=== PATIENT | male | born 1965 | race Caucasian/White ===

== ENCOUNTER 2020-07-29 10:26 | Emergency (ER) | payer OTHER, SELFPAY ==
--- NOTE | ~2020-07-29 | XR_ITS ---
EXAMINATION: XR HIP, RIGHT CLINICAL INFORMATION: Status post fall on her bed.] And pelvic pain. COMPARISON: None TECHNIQUE: AP pelvis one view. Right hip 2 views. FINDINGS: AP pelvis: There is normal symmetry of both hip joints and SI joints. No visible acute fracture or dislocation seen. No bony erosive changes. The soft tissues are normal. XR/XR hip RT w PEL1V IMPRESSION: Unremarkable AP pelvis and right hip exam.
[2020-07-29 10:36] VITALS: BP 145/83; PULSE 80; O2SAT 97
[2020-07-29 10:48] VITALS: BP 126/83; PULSE 62; RESP 18; TEMP 36.6; O2SAT 99; BMI 18.1
--- NOTE | 2020-07-29 11:08 | ED_ITS ---
HPI - Extremity Injury (Lower) General Chief Complaint: Extremity Problem Stated Complaint: SHELBIE. LEG PAIN S/P FALL WEDNESDAY Time Seen by Provider: 07/29/20 10:47 Source: patient and EMS Mode of arrival: EMS Limitations: no limitations History of Present Illness HPI Narrative: 55-year-old male with a past medical history of substance abuse with heroin/opioids, alcoholism, depression, hypertension, chronic back pain and history of pelvic fracture approximately 8 months ago presenting to the ED with complaints of right hip/pelvic pain since he fell out of bed on Wednesday. Denies head injury or loss of consciousness. Denies being on any blood thinners. Denies any other symptoms complaints concerns or injuries at this time. Denies any SI/HI/auditory visual cine shins thoughts of self-injury. MD complaint: hip injury Onset (ago): day(s) (3 days ago) Place: home Severity: moderate Relieving factors: nothing Exacerbating factors: weight bearing, movement and palpation Context: fall Associated symptoms: able to partially bear weight Other symptoms: none Treatments prior to arrival: other (One bag of heroin due to he ran out of PercRevolightset) Related Data Home Medications Medication Instructions Recorded Confirmed buprenorphine 8 mg-naloxone 2 mg film SUBLINGUAL 12/16/19 sublingual film clonazepam 0.5 mg tablet 0.5 mg PO BID 12/16/19 naloxone 4 mg/actuation nasal spray 4 mg INTRANASAL Q2M PRN 12/16/19 Previous Rx's Medication Instructions Recorded cyclobenzaprine 10 mg PO Q8H #10 tab 07/29/20 naproxen 500 mg PO BID PRN #10 tab 07/29/20 Allergies Allergy/AdvReac Type Severity Reaction Status Date / Time codeine [CODEINE] Allergy Unknown UNKNOWN Verified 07/29/20 10:50 Penicillins [PCN] Allergy Unknown RASH Verified 07/29/20 10:50 acetaminophen [From TYLENOL] AdvReac Unknown STOMACH Verified 01/16/20 07:02 UPSET Review of Systems Review of Systems: Constitutional : No changes in activity, No lethargy, No recent prior head injury, No agitation, No increased fussiness ENT/Mouth : No Ear Pain, No Nasal discharge/drainage Eyes: No Eye Pain, No Swelling, No Redness, No Foreign Body, No Vision Changes Cardiovascular : No Chest Pain, No SOB Respiratory : No Cough Gastrointestinal : No Nausea, No Vomiting, No abdominal Pain Genitourinary : No Dysuria, No Urinary Frequency, No Urinary Incontinence, No Urgency, No Flank Pain Musculoskeletal : + right pelvic/hip joint pain, No neck stiffness, No back pain/injury Skin : No lacerations Neuro : No unsteady gait, No Paresthesias, No Loss of Consciousness, No altered mental status, No Headache Yes all other systems are reviewed and are negative [facility] Past Medical History Attestation statement: The following information was validated with the patient. Medical History Drug abuse, opioid type History of broken nose Surgical History History of amputation of finger of left hand History of nasal surgery History of surgery Family History Family History Father Medical history unknown Mother Medical history unknown Social History Social History Alcohol intake: never Smoked in Last 30 Days: No Use of substances other than those prescribed or required for medical reasons: No Advance Directives: Yes Advance Directives Information Provided: Yes Advance Directives on File: No Physical Exam Vital Signs: Vital Signs: Last Vital Signs Temp 97.9 F 07/29/20 10:48 Pulse 62 07/29/20 10:48 Resp 18 07/29/20 10:48 BP 126/83 07/29/20 10:48 Pulse Ox 99 07/29/20 10:48 Body Mass Index 18.1 vital signs have been reviewed as normal and appeared to be correct. Blood pressure normal. Heart rate normal. Respiration rate normal. Temperature normal. Oxygen saturation normal. Appearance: Alert. Oriented X3. No acute distress. Head: Normal external exam. Normocephalic. Atraumatic. No Lord signs noted. No raccoon eyes noted Eyes: PERRLA. EOMI. Conjunctiva and sclera normal. Eyelids normal. ENT: Pharynx normal. Uvula midline. Moist mucous membranes. No trismus noted. No drooling noted. No muffled voice noted. Neck: Normal inspection. Neck supple. FROM. No adenopathy. Thyroid Normal. No meningeal signs. No neck mass noted. CVS: Normal heart rate and rhythm. Heart sound normal. No murmurs noted. Pulses normal throughout. Respiratory: No respiratory distress. Painless inspiration. Breath sounds normal. No wheezes/rales/rhonchi noted. Chest nontender. No accessory muscle usage noted or decreased air movement noted. Abdomen: Soft and nontender. Bowel sounds normal in all 4 quadrants. No d istention noted. No organomegaly noted. No visible injury noted. Back: Full range of motion noted. Skin: Skin warm and dry. Normal skin color. Normal skin turgor. No rashes/lesions/lacerations noted. Extremities: Patient with tenderness to palpation to right hip joint at the medial aspect. Patient has full range of motion of the pelvis/right hip joint. No obvious deformities. Patient does have limping gait due to pain. No signs of infection/fluctuance/streaking/foreign bodies or rashes noted. No lower extremity edema. No calf tenderness noted. Otherwise Extremities exhibit normal range of motion and nontender. Neuro: Oriented X 3. No motor deficit. No sensory deficit. Reflexes normal. Course Course Course Narrative: X-ray obtained and negative for any acute processes. Patient most likely right hip strain/muscle spasm. Will DC home with crutches and symptomatic treatment instructions to return if any new or worsening symptoms and to follow-up with orthopedics if symptoms persist longer than 2 weeks. Patient understands agrees with this plan. MDM - Extremity Injury (Lower) MDM Narrative Medical decision making narrative: 10:55am - 55-year-old male with a past medical history of substance abuse with heroin/opioids, alcoholism, depression, hypertension, chronic back pain and history of pelvic fracture approximately 8 months ago presenting to the ED with complaints of right hip/pelvic pain since he fell out of bed on Wednesday. - Plan: Xray of right hip/pelvis then re-evaluate. Medical Records Attestation: I reviewed the patient's medical records. Imaging Data Right hip/pelvis x-ray: Attestation: I personally reviewed and interpreted this imaging study as follows: Radiologist's impression: FINDINGS: AP pelvis: There is normal symmetry of both hip joints and SI joints. No visible acute fracture or dislocation seen. No bony erosive changes. The soft tissues are normal. XR/XR hip RT w PEL1V IMPRESSION: Unremarkable AP pelvis and right hip exam. Discharge Plan Discharge Clinical Impression: Strain of muscle of right hip, Fall Patient Disposition: Home, Self-Care Instructions: Crutch Instructions (ED), Muscle Spasm (ED) Prescriptions: New cyclobenzaprine 10 mg tablet 10 mg PO Q8H Qty: 10 RF: 0 naproxen 500 mg tablet 500 mg PO BID PRN (Reason: pain) Qty: 10 RF: 0 Referrals: Tan Winn MD [Physician] - 2 weeks (If symptoms persist) Print Language: Belarusian
[2020-07-29] MEDS: Cyclobenzaprine HCl 10 MG TABLET PO (12:49)
[2020-07-29] MEDS: NaPROXEN 500 MG TABLET PO (12:49)
== END 2020-07-29 12:53 | disposition home or self-care (01) ==
PROVIDERS: Emergency Provider Emergency Medicine; PCP Internal Medicine
DX: S76.011A Strain of muscle, fascia and tendon of right hip, initial encounter (principal); M25.551 Pain in right hip; F11.10 Opioid abuse, uncomplicated; W01.0XXA Fall on same level from slipping, tripping and stumbling without subsequent striking against object, initial encounter; Y93.9 Activity, unspecified; Y92.9 Unspecified place or not applicable; Y99.9 Unspecified external cause status; Z79.899 Other long term (current) drug therapy
CPT/HCPCS: 73502; 99284

== ENCOUNTER → 2021-08-04 09:17 | Outpatient (REF) | payer OTHER, SELFPAY | LOC: HO.CARD 09:17 | PROVIDERS: Visit Provider Family Medicine | DX: Z13.89 Encounter for screening for other disorder (principal) ==

== ENCOUNTER → 2021-08-07 08:12 | Outpatient (REF) | payer OTHER, SELFPAY ==
--- NOTE | 2021-08-07 08:18 | ECG_ITS ---
Test Reason : ck qt prolongation Blood Pressure : / mmHG Vent. Rate : 055 BPM Atrial Rate : 055 BPM P-R Int : 158 ms QRS Dur : 104 ms QT Int : 456 ms P-R-T Axes : 035 -45 045 degrees QTc Int : 436 ms Sinus bradycardia Left axis deviation Abnormal ECG When compared with ECG of 02-MAY-2015 22:51, Vent. rate has decreased BY 34 BPM Criteria for Inferior infarct are no longer Present Referred By: Temi Mijares Electronically Signed By:EMERALD DAVIS
== END ==
LOC: HO.CARD 08:12
PROVIDERS: PCP Internal Medicine; Visit Provider Family Medicine
DX: I45.81 Long QT syndrome (principal)
CPT/HCPCS: 93005

== ENCOUNTER 2021-12-02 18:41 | Emergency (ER) | payer OTHER, SELFPAY ==
--- NOTE | ~2021-12-02 | CT_ITS ---
EXAMINATION: CT HEAD WITHOUT CONTRAST CLINICAL INFORMATION: Altered mental status. COMPARISON: CT head dated from 10/18/2016. TECHNIQUE: Contiguous axial imaging was performed from the skull base to vertex without intravenous administration of contrast. This CT examination was performed using dose optimization techniques as appropriate, variously including the following: *Automated exposure control *Adjustment of mA and/or kV according to patient size (this includes techniques or standardized protocols for targeted exams where dose is matched to indication/reason for exam; i.e. extremities or head) *Use of iterative reconstruction technique DLP: 652 mGy-cm FINDINGS: There is no evidence of acute intracranial hemorrhage or edematous territorial infarction. Scattered hypoattenuation in the periventricular and deep white matter are consistent with moderate microangiopathy. Chauhan-white matter differentiation is preserved. Chronic bilateral lacunar infarcts similar when compared to 2017. Proportional prominence of the ventricles and sulcal spaces. No evidence for obstructive hydrocephalus. No abnormal mass effect or midline shift. No extra-axial fluid collections. No acute soft tissue or osseous abnormalities. The mastoid air cells and paranasal sinuses are clear. CT/CT head/brain wo IV con IMPRESSION: No evidence of acute intracranial hemorrhage or edematous territorial infarction. Chronic microangiopathy and generalized cerebral volume loss.
--- NOTE | ~2021-12-02 | XR_ITS ---
EXAMINATION: XR LUMBOSACRAL SPINE CLINICAL INFORMATION: Pain after fall COMPARISON: 07/23/2015 TECHNIQUE: Three views of the lumbosacral spine. FINDINGS: No acute fracture or subluxation. Alignment maintained. Mild disc space narrowing at the lower lumbar spine. Anterior endplate osteophytes. Facet arthropathy present. The sacroiliac joints are symmetric. The visualized sacrum is intact. Normal bowel gas pattern. XR/XR lumbar spine 2-3V IMPRESSION: No acute fracture or subluxation. Degenerative change at the lower lumbar spine.
[2021-12-02 19:07] VITALS: PULSE 89; RESP 16; TEMP 36.2; O2SAT 96; BMI 18.5
[2021-12-02 19:12] VITALS: BP 119/74
--- NOTE | 2021-12-03 01:38 | ED.GENADULT ---
HPI - General Adult General Chief complaint: General Medical Stated complaint: fell off roof at home Time Seen by Provider: 12/02/21 18:54 Source: patient Mode of arrival: ambulatory History of Present Illness HPI narrative: Patient with chronic back problem claims that it happened after he fell years ago had pelvic fractures on methadone heavy doses , snorts heroin off and on comes here for ongoing pain got worse for last 3 days no radiation of the pain no leg weakness Related Data Home Medications Medication Instructions Recorded Confirmed buprenorphine 8 mg-naloxone 2 mg film sublingual 12/16/19 sublingual film clonazepam 0.5 mg tablet 0.5 mg PO BID 12/16/19 naloxone 4 mg/actuation nasal 4 mg intranasal Q2M PRN 12/16/19 spray (Narcan) Previous Rx's Medication Instructions Recorded cyclobenzaprine 10 mg tablet 10 mg PO Q8H Muscle spasm #10 tabs 07/29/20 naproxen 500 mg tablet 500 mg PO BID PRN pain #10 tabs 07/29/20 cyclobenzaprine 10 mg tablet 10 mg PO Q8H #20 tabs 12/03/21 ibuprofen 600 mg tablet 600 mg PO Q6H PRN Pain, Moderate 12/03/21 #30 tabs Allergies Allergy/AdvReac Type Severity Reaction Status Date / Time codeine [CODEINE] Allergy Unknown UNKNOWN Verified 07/29/20 10:50 Penicillins [PCN] Allergy Unknown RASH Verified 07/29/20 10:50 acetaminophen [From TYLENOL] AdvReac Unknown STOMACH Verified 01/16/20 07:02 UPSET Review of Systems Review of Systems: Yes all other systems are reviewed and are negative PMFSH Past Medical History Medical History Drug abuse, opioid type History of broken nose Surgical History History of amputation of finger of left hand History of nasal surgery History of surgery Family History Family History Father Medical history unknown Mother Medical history unknown Social History Social History Alcohol intake: never Advance Directives: No Advance Directives Information Provided: No Physical Exam ED Vital Signs: Vital Signs - 24 hr 12/02/21 19:07 12/02/21 19:12 12/03/21 01:47 Temperature 97.2 F 97.0 F Pulse Rate 89 82 Respiratory Rate 16 17 Blood Pressure 119/74 105/73 Pulse Oximetry 96 96 Oxygen Delivery Method Room Air Room Air 12/03/21 03:16 12/03/21 05:19 12/03/21 05:27 Temperature 96.2 F L Pulse Rate 53 50 Respiratory Rate 12 19 Blood Pressure 95/55 L 148/98 H Pulse Oximetry 94 98 Oxygen Delivery Method Room Air Room Air BMI result Body Mass Index 18.5 Appearance: Alert. Oriented X3. No acute distress. ENT: Pharynx normal. Oral Mucosa moist Neck: Normal inspection. Neck supple. CVS: Normal heart rate and rhythm. Pulses normal. Respiratory: No respiratory distress. Equal air entry bilateral, no wheezing/rales/rhonchi Abdomen: Soft and nontender. Bowel sounds are present, no mass palpable, no CVA tenderness Skin: Skin warm and dry. Normal skin color. Normal skin turgor. back; diffuse lumbar tenderness no focal deformity SLR negative bilateral Extremities: No lower extremity edema. No calf tenderness, no IVDA sandoval Neuro: Oriented X 3. No motor deficit. No sensory deficit.No cerebellar signs , cranial nerves II-XII intact Medical Decision Making MDM Narrative Medical decision making narrative: 06:30 Patient x-ray of lumbar spine negative for any acute fracture during stay in the ER patient was very sleepy Delirius, difficult to arouse bottle of Klonopin Seroquel was found next to him likely taking those medications people normal says normal reaction for response to Narcan. Will get the labs drug screening of the re-examined and then disposition Discharge Plan Discharge Clinical Impression: Chronic back pain, Drug abuse, opioid type Patient Disposition: Still a Patient Instructions: Chronic Back Pain (DC), Opioid Use Disorder (ED) Additional Instructions: Take muscle relaxant and pain medication as prescribed Follow with PCP Prescriptions: New cyclobenzaprine 10 mg tablet 10 mg PO Q8H Qty: 20 0RF ibuprofen 600 mg tablet 600 mg PO Q6H PRN (Reason: Pain, Moderate) Qty: 30 0RF No Action cyclobenzaprine 10 mg tablet 10 mg PO Q8H Qty: 10 0RF naproxen 500 mg tablet 500 mg PO BID PRN (Reason: pain) Qty: 10 0RF
[2021-12-03 01:47] VITALS: BP 105/73; PULSE 82; RESP 17; TEMP 36.1; O2SAT 96
[2021-12-03] MEDS: Ketorolac Tromethamine 60 MG/2 ML VIAL IM (02:33)
--- NOTE | 2021-12-03 02:41 | PC.NURSE ---
Assumed care of pt. from waiting room around 115. Pt c/o abdominal pain radiating around back. Currently at a 5/10, but will jump to 10 when it spasm. Asked pt. for urine sample, but he was unable as he doesn't need to use the restroom. Will get a sample as soon as he is able to urinate.
--- NOTE | 2021-12-03 03:09 | PC.NURSE ---
Pt. was sleeping in wheelchair in room, snoring and difficult to arouse. Able to get pt. changed into a vaishnavi and up into the stretcher with 2 person heavy assist. Pt. agreed to injection med. Unable to arouse enough to sit up and safely take PO medication. Pt. O2 is 92 on room air.
[2021-12-03 03:16] VITALS: BP 95/55; PULSE 53; RESP 12; TEMP 35.7; O2SAT 94
--- NOTE | 2021-12-03 04:13 | PC.NURSE ---
Pt. deeply asleep in bed.
--- NOTE | 2021-12-03 04:15 | PC.NURSE ---
Pt. sleeping in room. O2 sats have been good (97 plus) throughout the night. Turned o2 down from 4 L to 2L and will assess tolerance to this adjustment. NS maintenance will be delayed as current bag is still running.
[2021-12-03 05:19] VITALS: PULSE 50; RESP 19; O2SAT 98
[2021-12-03 05:27] VITALS: BP 148/98
--- NOTE | 2021-12-03 05:28 | PC.NURSE ---
Addendum entered by Ajay Lorenzo RN 12/03/21 07:00: patient moved to diaz, attempting to void - refusing to use urinal, trying to carroting machine offbearer bed. staff at bedside for safety. not able to be redirected. Dr Amos at [facility], ordered IV and IV fluids. Patient continues to attempt to get out of bed, flailing, swatting staff away. Original Note: Assumed care at approx 0520, patient placed on monitor, attempted to get BP - thrashing in bed, spastic movements. Not cooperative or redirectable. Patient HR 40's SB, seen by Dr Amos. Managed to get BP 148/98. On 2 liters of 02. Patient unkempt, dirty hands & socks.
--- NOTE | 2021-12-03 06:44 | ECG_ITS ---
Test Reason : OVERDOSE Blood Pressure : / mmHG Vent. Rate : 061 BPM Atrial Rate : 061 BPM P-R Int : 176 ms QRS Dur : 108 ms QT Int : 460 ms P-R-T Axes : 054 -47 -01 degrees QTc Int : 463 ms Normal sinus rhythm Possible Left atrial enlargement Left axis deviation Minimal voltage criteria for LVH, may be normal variant ( Nik product ) Abnormal ECG When compared with ECG of 07-AUG-2021 08:32, T wave inversion now evident in Inferior leads Nonspecific T wave abnormality now evident in Anterior leads Referred By: Kian Cobos Electronically Signed By:GISELLA BAEZ
[2021-12-03 08:11] LABS: MANUAL DIFF FLAG NO
[2021-12-03 08:15] LABS: Basophils Percent Auto 0.5 % (0-2); Eosinophils Absolute Auto 0.2 X10*3/uL (0.0-0.4); Eosinophils Percent Auto 1.7 % (0-4); Hematocrit 44.7 % (42.0-52.0); Hemoglobin 14.6 g/dl (14.0-18.0); Imm Gran Abs Auto 0.02 X10*3/uL (0.00-0.03); Imm Gran Pct Auto 0.2 % (0.0-0.4); Lymphocytes Absolute Auto 1.2 X10*3/uL (1.2-4.9); Lymphocytes Percent Auto 13.4 % (20-40); Mean Corpuscular HGB Conc 32.7 g/dl (31.0-36.0); Mean Corpuscular Hemoglobin 31.3 pg (27.0-33.0); Mean Corpuscular Volume 95.7 fL (80.0-98.0); Mean Platelet Volume 9.4 fL (9.4-12.4); Monocytes Absolute Auto 0.7 X10*3/uL (0.1-1.2); Monocytes Percent Auto 7.9 % (2-11); Neutrophils Absolute Auto 6.8 x10*3/uL (2.0-8.3); Neutrophils Percent Auto 76.3 % (45-73); Platelet Count 152 X10*3/uL (160-400); Red Blood Count 4.67 X10*6/uL (4.60-5.80); White Blood Count 8.9 X10*3/uL (4.8-10.8)
[2021-12-03 08:28] LABS: Ethanol < 10 mg/dL
[2021-12-03 08:29] VITALS: BP 91/53; PULSE 57; RESP 20; O2SAT 95
[2021-12-03 08:29] LABS: COVID-19 Test Negative (Negative); Lactic Acid 1.4 mmol/L (0.5-2.0)
[2021-12-03 08:32] LABS: Acetaminophen LAB < 1 mcg/mL (<30); Alanine Aminotransferase 48 U/L (0-40); Albumin Level 3.1 g/dL (3.5-5.0); Alkaline Phosphatase 96 U/L (39-117); Anion Gap 13 (12-20); Aspartate Amino Transferase 50 U/L (5-37); Bilirubin Total 0.8 mg/dL (0.0-1.0); Blood Urea Nitrogen 7 mg/dL (9-16); Calcium 8.6 mg/dL (8.4-10.2); Carbon Dioxide 26 mmol/L (22-29); Chloride 104 mmol/L (96-108); Estimated Glomerular Filt Rate > 60; Glucose Random 106 mg/dL (60-115); Potassium 3.5 mmol/L (3.3-5.1); Salicylate < 5.0 mg/dL (15-30); Sodium 139 mmol/L (135-145); Total Protein 6.6 g/dL (6.5-8.0)
[2021-12-03] MEDS: 0.9 % Sodium Chloride 1,000 ML 999 ML IV (08:32)
[2021-12-03 09:01] LABS: Erythrocyte Sedimentation Rate 6 MM/HR (0-15)
--- NOTE | 2021-12-03 12:13 | PC.NURSE ---
slept all morning since 0800, nad, skin wpd
[2021-12-03 12:21] VITALS: BP 126/78; PULSE 51; RESP 14; O2SAT 97
[2021-12-03 13:22] LABS: Amphetamine Screen Urine Not Detected (Not Detect); Barbiturates, Urine Not Detected (Not Detect); Benzodiazepines Screen Urine POSITIVE (Not Detect); Cannabinoid Screen Urine POSITIVE (Not Detect); Cocaine Screen Urine Not Detected (Not Detect); Fentanyl, urine POSITIVE (Not Detect); Opiate Screen Urine POSITIVE (Not Detect); Phencyclidine Screen Urine Not Detected (Not Detect)
--- NOTE | 2021-12-03 13:27 | PC.NURSE ---
NAD, ALERT, SPEECH CLEAR, STEADY GAIT, ATE SEVERAL SANDWICHES AND A BURGER, NAD
== END 2021-12-03 13:28 | disposition home or self-care (01) ==
PROVIDERS: Emergency Provider Internal Medicine
DX: M54.50 Low back pain, unspecified (principal); F11.10 Opioid abuse, uncomplicated; R41.82 Altered mental status, unspecified; Z20.822 Contact with and (suspected) exposure to COVID-19; Z79.899 Other long term (current) drug therapy; Z71.51 Drug abuse counseling and surveillance of drug abuser
CPT/HCPCS: 36415; 70450; 72100; 80053; 80143; 80179; 80307; 82077; 83605; 85025; 85652; 87040; 87635; 93005; 96372; 99284; J1885

== ENCOUNTER → 2022-02-16 09:29 | Outpatient (REF) | payer OTHER, SELFPAY ==
--- NOTE | 2022-02-16 09:37 | ECG_ITS ---
Test Reason : Methadone for QT Prolongation Blood Pressure : / mmHG Vent. Rate : 070 BPM Atrial Rate : 070 BPM P-R Int : 162 ms QRS Dur : 100 ms QT Int : 400 ms P-R-T Axes : 047 -60 053 degrees QTc Int : 432 ms Normal sinus rhythm Left anterior fascicular block Abnormal ECG When compared with ECG of 03-DEC-2021 07:21, T wave inversion no longer evident in Inferior leads Nonspecific T wave abnormality no longer evident in Anterior leads Referred By: Temi Mijares Electronically Signed By:JANICE OCHOA MD
== END ==
LOC: HO.CARD 09:29
PROVIDERS: Visit Provider Family Medicine
DX: R94.31 Abnormal electrocardiogram [ECG] [EKG] (principal); Z79.891 Long term (current) use of opiate analgesic
CPT/HCPCS: 93005

== ENCOUNTER 2022-09-09 11:20 | Emergency (ER) | payer OTHER, SELFPAY ==
[2022-09-09 11:28] VITALS: BP 143/96; PULSE 93; RESP 20; TEMP 37; O2SAT 96
[2022-09-09 11:34] VITALS: BP 166/70; PULSE 94; O2SAT 97; BMI 25.2
[2022-09-09 12:05] LABS: MANUAL DIFF FLAG NO
--- NOTE | 2022-09-09 12:06 | ED_ITS ---
HPI - General Adult General Chief complaint: Psychiatric Symptoms Stated complaint: MANIC EPISODE Time Seen by Provider: 09/09/22 11:39 Source: patient and EMS Mode of arrival: EMS Limitations: no limitations History of Present Illness HPI narrative: 57-year-old male with history of polysubstance abuse, depression presents with abnormal behavior at home. Apparently, patient was throwing a cardboard boxes off of his balcony which affected his landlord. He denies any suicidal homicidal ideation. Denies any active drug or alcohol use. Denies any major depression or anxiety. Patient denies any active symptoms. Symptoms are there for mild to non-existent. There is no clear relieving or exacerbating features. Related Data Home Medications Medication Instructions Recorded Confirmed buprenorphine 8 mg-naloxone 2 mg film sublingual 12/16/19 sublingual film clonazepam 0.5 mg tablet 0.5 mg PO BID 12/16/19 naloxone 4 mg/actuation nasal 4 mg intranasal Q2M PRN 12/16/19 spray (Narcan) Previous Rx's Medication Instructions Recorded cyclobenzaprine 10 mg tablet 10 mg PO Q8H Muscle spasm #10 tabs 07/29/20 naproxen 500 mg tablet 500 mg PO BID PRN pain #10 tabs 07/29/20 cyclobenzaprine 10 mg tablet 10 mg PO Q8H #20 tabs 12/03/21 ibuprofen 600 mg tablet 600 mg PO Q6H PRN Pain, Moderate 12/03/21 #30 tabs Allergies Allergy/AdvReac Type Severity Reaction Status Date / Time codeine [CODEINE] Allergy Unknown UNKNOWN Verified 07/29/20 10:50 Penicillins [PCN] Allergy Unknown RASH Verified 07/29/20 10:50 acetaminophen [From TYLENOL] AdvReac Unknown STOMACH Verified 01/16/20 07:02 UPSET Review of Systems Review of Systems: CONSTITUTIONAL: Denies weight loss, fever and chills. HEENT: Denies changes in vision and hearing. RESPIRATORY: Denies SOB and cough. CV: Denies palpitations no CP. GI: Denies abdominal pain, nausea, vomiting and diarrhea. : Denies dysuria and urinary frequency. MSK: Denies myalgia and joint pain. SKIN: Denies rash and pruritus. NEUROLOGICAL: Denies headache and syncope. PSYCHIATRIC: Denies recent changes in mood. Denies anxiety and depression. All other ROS are negative unless in HPI PMFSH Past Medical History Medical History Drug abuse, opioid type History of broken nose Surgical History History of amputation of finger of left hand History of nasal surgery History of surgery Family History Family History Father Medical history unknown Mother Medical history unknown Social History Social History Alcohol intake: never Advance Directives: No Advance Directives Information Provided: No Physical Exam ED Vital Signs: Vital Signs - 24 hr 09/09/22 11:28 Temperature 98.6 F Pulse Rate 93 Respiratory Rate 20 Blood Pressure 143/96 H Pulse Oximetry 96 Oxygen Delivery Method Room Air BMI result Body Mass Index 25.2 GEN: Well developed, no acute distress, alert, oriented, unkempt appearing HEENT: Normocephalic, atraumatic, normal external ears, nose appears normal, no oropharyngeal edema or exudates Eyes: Normal to appearance Neck: Supple, no lymphadenopathy Respiratory: Talks in complete sentences, no respiratory distress, clear to auscultation bilaterally Cardiovascular: Regular rate and rhythm, no murmurs rubs or gallops Abdomen: Soft, nontender, nondistended, no guarding, no rebound Back: No CVA tenderness Extremities: No clubbing cyanosis or edema Neurologic: No focal neurologic deficits, cranial nerves 2-12 intact, strength is 5/5 bilaterally Skin: No rash Course Course Course Narrative: 57-year-old male presents with somewhat erratic behavior. He has been, cooperative throughout his emergency department course. I suspect his behavior is polysubstance abuse driven. Patient's speech is improved although slight still slightly slurred. Able to ambulate. His gait is not entirely perfect however he is steady enough to pose no immediate threat to himself for accidental fall. However, I did discuss keeping him a bit longer for sobriety. However, he would like to be discharged at this time. He is aware that he might fall and injure himself more significantly. Despite this he would like to be discharged. He is not suicidal homicidal. At this point I do not believe I can hold him against his wishes as he has decision-making capacity. He understands the consequences of his actions. Been counseled regarding polysubstance abuse. Medical Decision Making Medical Decision Making MDM Narrative: 57-year-old male presents for evaluation of possible retic behavior. Denies any suicidal homicidal ideation. Like to be discharged at this time. He does appear somewhat intoxicated, will check an alcohol level, toxicology screen. Everything appears normal in patient continues to have decision making capacity, will discharge patient home. Differential Diagnosis Differential Diagnoses: The differential diagnosis associated with the presentation includes (Psychiatric history, psychological problems, drug abuse, alcohol intoxication) Admission/Observation Consideration of admission/observation: Escalation of care including admission/observation considered Lab Data 09/09/22 11:55 09/09/22 11:55 Labs: Lab Results 09/09/22 09/09/22 09/09/22 Range/Units 11:55 11:55 11:55 WBC 9.0 (4.8-10.8) X10*3/uL RBC 5.39 (4.60-5.80) X10*6/uL Hgb 16.4 (14.0-18.0) g/dl Hct 49.6 (42.0-52.0) % MCV 92.0 (80.0-98.0) fL MCH 30.4 (27.0-33.0) pg MCHC 33.1 (31.0-36.0) g/dl RDW 13.2 (11.0-16.0) % Plt Count 183 (160-400) X10*3/uL MPV 9.7 (9.4-12.4) fL Immature Gran % (Auto) 0.2 (0.0-0.4) % Neut % (Auto) 61.6 (45-73) % Lymph % (Auto) 28.5 (20-40) % [place] % (Auto) 7.9 (2-11) % Eos % (Auto) 1.4 (0-4) % Baso % (Auto) 0.4 (0-2) % Lymph # (Auto) 2.6 (1.2-4.9) X10*3/uL [place] # (Auto) 0.7 (0.1-1.2) X10*3/uL Eos # (Auto) 0.1 (0.0-0.4) X10*3/uL Baso # (Auto) 0.0 (0.0-0.2) X10*3/uL Abs Immat Gran (auto) 0.02 (0.00-0.03) X10*3/uL Absolute Neuts (auto) 5.6 (2.0-8.3) x10*3/uL Absolute Nucleated RBC 0.000 (0.0-0.012) X10*3/uL Nucleated RBC % (auto) 0.0 (0.0-0.2) /100WBC Sodium 140 (135-145) mmol/L Potassium 4.0 (3.3-5.1) mmol/L Chloride 102 (96-108) mmol/L Carbon Dioxide 28 (22-29) mmol/L Anion Gap 14 (12-20) BUN 18 H (9-16) mg/dL Creatinine 1.03 (0.5-1.4) mg/dL Estim Creat Clear Calc 70.5 Estimated GFR > 60 Random Glucose 95 (60-115) mg/dL Calcium 10.2 D (8.4-10.2) mg/dL Total Bilirubin 1.1 H (0.0-1.0) mg/dL AST 71 H (5-37) U/L ALT 69 H (0-40) U/L Alkaline Phosphatase 118 H (39-117) U/L Total Protein 8.5 H (6.5-8.0) g/dL Albumin 3.8 (3.5-5.0) g/dL Urine Opiates Screen (Not Detect) Urine Fentanyl Screen (Not Detect) Ur Barbiturates Screen (Not Detect) Ur Phencyclidine Scrn (Not Detect) Ur Amphetamines Screen (Not Detect) U Benzodiazepines Scrn (Not Detect) Urine Cocaine Screen (Not Detect) U Marijuana (THC) Screen (Not Detect) Ethyl Alcohol < 10 mg/dL 09/09/22 Range/Units 12:31 WBC (4.8-10.8) X10*3/uL RBC (4.60-5.80) X10*6/uL Hgb (14.0-18.0) g/dl Hct (42.0-52.0) % MCV (80.0-98.0) fL MCH (27.0-33.0) pg MCHC (31.0-36.0) g/dl RDW (11.0-16.0) % Plt Count (160-400) X10*3/uL MPV (9.4-12.4) fL Immature Gran % (Auto) (0.0-0.4) % Neut % (Auto) (45-73) % Lymph % (Auto) (20-40) % [place] % (Auto) (2-11) % Eos % (Auto) (0-4) % Baso % (Auto) (0-2) % Lymph # (Auto) (1.2-4.9) X10*3/uL [place] # (Auto) (0.1-1.2) X10*3/uL Eos # (Auto) (0.0-0.4) X10*3/uL Baso # (Auto) (0.0-0.2) X10*3/uL Abs Immat Gran (auto) (0.00-0.03) X10*3/uL Absolute Neuts (auto) (2.0-8.3) x10*3/uL Absolute Nucleated RBC (0.0-0.012) X10*3/uL Nucleated RBC % (auto) (0.0-0.2) /100WBC Sodium (135-145) mmol/L Potassium (3.3-5.1) mmol/L Chloride (96-108) mmol/L Carbon Dioxide (22-29) mmol/L Anion Gap (12-20) BUN (9-16) mg/dL Creatinine (0.5-1.4) mg/dL Estim Creat Clear Calc Estimated GFR Random Glucose (60-115) mg/dL Calcium (8.4-10.2) mg/dL Total Bilirubin (0.0-1.0) mg/dL AST (5-37) U/L ALT (0-40) U/L Alkaline Phosphatase (39-117) U/L Total Protein (6.5-8.0) g/dL Albumin (3.5-5.0) g/dL Urine Opiates Screen POSITIVE H (Not Detect) Urine Fentanyl Screen POSITIVE H (Not Detect) Ur Barbiturates Screen Not Detected (Not Detect) Ur Phencyclidine Scrn Not Detected (Not Detect) Ur Amphetamines Screen Not Detected (Not Detect) U Benzodiazepines Scrn POSITIVE H (Not Detect) Urine Cocaine Screen POSITIVE H (Not Detect) U Marijuana (THC) Screen POSITIVE H (Not Detect) Ethyl Alcohol mg/dL Independent Historian Clinical information obtained from an independent historian. History obtained from or confirmed by: EMS Discharge Plan Discharge Clinical Impression: Behavior disturbance, Polysubstance abuse Patient Disposition: Home, Self-Care Instructions: Polysubstance Abuse (ED) Prescriptions: No Action cyclobenzaprine 10 mg tablet 10 mg PO Q8H Qty: 10 0RF naproxen 500 mg tablet 500 mg PO BID PRN (Reason: pain) Qty: 10 0RF cyclobenzaprine 10 mg tablet 10 mg PO Q8H Qty: 20 0RF ibuprofen 600 mg tablet 600 mg PO Q6H PRN (Reason: Pain, Moderate) Qty: 30 0RF Referrals: [facility] [place] [facility] [Provider Group]
[2022-09-09 12:09] LABS: Basophils Percent Auto 0.4 % (0-2); Eosinophils Absolute Auto 0.1 X10*3/uL (0.0-0.4); Eosinophils Percent Auto 1.4 % (0-4); Hematocrit 49.6 % (42.0-52.0); Hemoglobin 16.4 g/dl (14.0-18.0); Imm Gran Abs Auto 0.02 X10*3/uL (0.00-0.03); Imm Gran Pct Auto 0.2 % (0.0-0.4); Lymphocytes Absolute Auto 2.6 X10*3/uL (1.2-4.9); Lymphocytes Percent Auto 28.5 % (20-40); Mean Corpuscular HGB Conc 33.1 g/dl (31.0-36.0); Mean Corpuscular Hemoglobin 30.4 pg (27.0-33.0); Mean Platelet Volume 9.7 fL (9.4-12.4); Monocytes Absolute Auto 0.7 X10*3/uL (0.1-1.2); Monocytes Percent Auto 7.9 % (2-11); Neutrophils Absolute Auto 5.6 x10*3/uL (2.0-8.3); Neutrophils Percent Auto 61.6 % (45-73); Platelet Count 183 X10*3/uL (160-400); Red Blood Count 5.39 X10*6/uL (4.60-5.80); Red Cell Distribution Width 13.2 % (11.0-16.0)
[2022-09-09 12:27] LABS: Alanine Aminotransferase 69 U/L (0-40); Albumin Level 3.8 g/dL (3.5-5.0); Alkaline Phosphatase 118 U/L (39-117); Anion Gap 14 (12-20); Aspartate Amino Transferase 71 U/L (5-37); Bilirubin Total 1.1 mg/dL (0.0-1.0); Blood Urea Nitrogen 18 mg/dL (9-16); Calcium 10.2 mg/dL (8.4-10.2); Carbon Dioxide 28 mmol/L (22-29); Chloride 102 mmol/L (96-108); Creatinine Clr Calc Pharmacy 70.5; Estimated Glomerular Filt Rate > 60; Glucose Random 95 mg/dL (60-115); Sodium 140 mmol/L (135-145); Total Protein 8.5 g/dL (6.5-8.0)
[2022-09-09 12:30] LABS: Ethanol < 10 mg/dL
[2022-09-09 12:48] LABS: Amphetamine Screen Urine Not Detected (Not Detect); Barbiturates, Urine Not Detected (Not Detect); Benzodiazepines Screen Urine POSITIVE (Not Detect); Cannabinoid Screen Urine POSITIVE (Not Detect); Cocaine Screen Urine POSITIVE (Not Detect); Fentanyl, urine POSITIVE (Not Detect); Opiate Screen Urine POSITIVE (Not Detect); Phencyclidine Screen Urine Not Detected (Not Detect)
[2022-09-09 14:56] VITALS: BP 134/95; PULSE 79; RESP 18; O2SAT 96
== END 2022-09-09 15:53 | disposition home or self-care (01) ==
PROVIDERS: Emergency Provider Emergency Medicine
DX: F91.9 Conduct disorder, unspecified (principal); F19.10 Other psychoactive substance abuse, uncomplicated; F11.20 Opioid dependence, uncomplicated; I10 Essential (primary) hypertension; Z79.899 Other long term (current) drug therapy
CPT/HCPCS: 36415; 80053; 80307; 85025; 99284

== ENCOUNTER 2023-01-14 08:36 | Outpatient (REF) | payer MEDICAID, SELFPAY ==
--- NOTE | ~2023-01-14 | XR_ITS ---
EXAMINATION: XR KNEE, RIGHT CLINICAL INFORMATION: Pain COMPARISON: Right knee radiograph from 02/24/2012 TECHNIQUE: Four views of the right knee. FINDINGS: No acute visible fracture or dislocation. Multicompartment arthritic changes. Chondrocalcinosis along the tibial plateau greatest along its lateral margin. Periarticular aspect along the superior margin of the patella and along the medial distal femoral condyle. Joint spaces and alignment are otherwise maintained. Small knee joint effusion. Soft tissues are unremarkable. XR/XR knee RT 2V IMPRESSION: 1. No acute visible fracture or dislocation. 2. Multicompartment arthritic changes. 3. Chondrocalcinosis along the tibial plateau greatest along its lateral margin. 4. Small knee joint effusion.
== END 2023-01-14 08:37 | disposition home or self-care (01) ==
LOC: HO.HHCX 08:36
PROVIDERS: Visit Provider Internal Medicine
DX: M25.561 Pain in right knee (principal)
CPT/HCPCS: 73560

== ENCOUNTER 2023-10-19 18:16 | Emergency (ER) | payer MEDICAID, SELFPAY ==
--- NOTE | 2023-10-19 | ECG_ITS ---
Test Reason : FALL Blood Pressure : / mmHG Vent. Rate : 066 BPM Atrial Rate : 066 BPM P-R Int : 184 ms QRS Dur : 110 ms QT Int : 448 ms P-R-T Axes : 048 -53 027 degrees QTc Int : 469 ms Normal sinus rhythm Left anterior fascicular block Minimal voltage criteria for LVH, may be normal variant ( [employer] product ) Abnormal ECG When compared with ECG of 16-FEB-2022 09:42, No significant change was found Referred By: Generic ED Physician Electronically Signed By:Carlos Quach
--- NOTE | ~2023-10-19 | CT_ITS ---
Examination: CT brain and CT cervical spine without contrast. CLINICAL INDICATION: Fall, LOC. COMPARISON: CT brain 12/03/2021 an MRI cervical spine 09/26/2013. TECHNIQUE: 2 mm thin axial and reformatted 2 mm thin sagittal and coronal images of brain were obtained. Subsequently 3 mm thin and reformatted 2 minutes thin sagittal coronal images of cervical spine were obtained. DLP 1161. This CT examination was performed using dose optimization technique as appropriate, variously including the following: Automated exposure control Adjustment of MA and/or KV according to patient size(this includes techniques or standardized protocols for targeted exams where dose is matched to indication/reason for exam; extremities or head. Use of iterative reconstruction techniques. FINDINGS: BRAIN: There is no acute intra-axial, extra-axial bleed, masses or midline shift. There is no acute infarction in evolution. The boles to white matter differentiation is maintained normal. The lateral ventricles are symmetrical in size and configuration with mild enlargement. Bone windows reveal no calvarial abnormality. There is no scalp soft tissue normality. There is mild mucoperiosteal thickening floor of the left maxillary sinus. Rest of the paranasal sinuses are well-aerated and clear. CERVICAL SPINE: There is mild reversal of cervical lordosis. The vertebral heights and alignment is normal. There is mild loss of C5-C6, C6-C7 and C7-T1 disc heights with mild ventral spondylosis. The craniovertebral junction and the C1-C2 alignment is preserved. The prevertebral and paravertebral soft tissues are normal. The airway is widely patent. There is bilateral apical pleural thickening. CT/CT cervical spine wo IV con IMPRESSION: No acute intracranial process seen. There is reversal of cervical lordosis. No visible acute fracture, dislocation or subluxation seen.
--- NOTE | ~2023-10-19 | CT_ITS ---
Examination: CT chest, abdomen and pelvis with IV contrast. CLINICAL INDICATION: Fall. Pain left upper quadrant and chest pain. COMPARISON: Chest x-ray 05/02/2015 and ultrasound abdomen 11/24/2018. TECHNIQUE: 5 mm thin axial and reformatted 3 mm thin sagittal and coronal images of chest, abdomen and pelvis were obtained following 85 ml Omnipaque 350. DLP 718. This CT examination was performed using dose optimization technique as appropriate, variously including the following: Automated exposure control Adjustment of MA and/or KV according to patient size(this includes techniques or standardized protocols for targeted exams where dose is matched to indication/reason for exam; extremities or head. Use of iterative reconstruction techniques. FINDINGS: CHEST: The lungs are the lungs are well-expanded and clear of acute pneumonic process. There is dependent bibasilar atelectasis. Minimal atelectasis visualized the right middle lobe medially. No pulmonary nodule, mass or consolidation. The thyroid lobes are symmetric and normal. The central trachea and the bronchi are widely patent. The heart size and the great vessels are normal caliber. No evidence aortic aneurysm or dissection seen. A three-vessel branching of aortic arch is noted. Mild coronary artery calcifications are present. There is no pericardial effusion. There is no pleural effusion, thickening or calcified pleural plaques. The axilla is unremarkable. There are deformities of right 9th, 10th and 11th posterior lateral ribs likely old healed fractures. ABDOMEN AND PELVIS: The liver is diffusely attenuated but normal size and contour. No focal lesion or intrahepatic ductal dilatation seen. There is a solitary gallstone without wall thickening. Visualized spleen, pancreas and bilateral adrenal glands unremarkable. Both kidney nephrograms are symmetrical in size and cortical thickness. No radiopaque renal calculi or hydronephrosis seen. No perinephric stranding. The abdominal aorta is normal caliber. No retroperitoneal lymph nodes or mass seen. The abdominal wall appears unremarkable. There is moderate stool and gas seen throughout the colon without distention. The small bowel loops are normal caliber. Appendix is normal caliber. No free air or free fluid seen. Imaging to the pelvis reveals unremarkable urinary bladder. The prostate gland is mildly enlarged with central gland calcification. No free fluid. No abnormal pelvic lymph nodes. Bone windows reveal mild degenerative disc changes L5/S1 disc level. There are large L5-S1 bridging osteophyte. No aggressive lytic or sclerotic process seen in dorsal or lumbosacral spine. CT/CT abdomen pelvis w IV con IMPRESSION: No acute process seen in the chest, abdomen or pelvis. Cholelithiasis. Fatty liver. Mild prostate enlargement with central gland calcifications. Moderate constipation.
[2023-10-19 18:25] VITALS: BP 135/94; BP 156/92; PULSE 71; PULSE 80; RESP 16; TEMP 36.8; O2SAT 96; O2SAT 97; BMI 24.8
--- NOTE | 2023-10-19 18:41 | PC.NURSE ---
Pt presents to ED via EMS from home. Reports he was standing on two stacked milk crates fixing his smoke alarm when he lost balance and fell. Reports he did hit his head (unsure on what) but knows he hit his abdomen and chest on the milk crates. Reports he felt fuzzy and lost consciousness for short period (no witnesses, home alone), crawled to his phone to call for help. C-collar by EMS. Reports pain to lower back, left arm, chest and abdomen. Obvious bruising noted to ABD, distended. Pt is alert and oriented, breathing even and unlabored. Reports vision is blurry. NSR on bedside monitoring engineer, VSS. Denies drug or alcohol use.
[2023-10-19 18:45] VITALS: BP 128/85; PULSE 70
--- NOTE | 2023-10-19 19:05 | ED_ITS ---
HPI - Fall General Chief Complaint: Fall Stated Complaint: Possible broken rib, fall off crates, diff breathi Time Seen by Provider: 10/19/23 18:41 Source: patient and EMS Mode of arrival: ambulatory Limitations: no limitations History of Present Illness ED Provider: Dr. Deb Alanis HPI Narrative: Patient comes to the emergency room complaining of severe rib pain on the left and left upper quadrant. Patient states that he was standing on 2 milk crates, trying to change a light bulb. Patient states that he lost balance, fell, hit his head, nearly lost consciousness. Patient states that he has severe left- sided rib pain and abdominal pain on the left. Patient also complaining of neck pain. Patient denies drinking alcohol. Related Data Home Medications ?Medication ?Instructions ?Recorded ?Confirmed buprenorphine 8 mg-naloxone 2 mg film sublingual 12/16/19 sublingual film clonazepam 0.5 mg tablet 0.5 mg PO BID 12/16/19 naloxone 4 mg/actuation nasal 4 mg intranasal Q2M PRN 12/16/19 spray (Narcan) Previous Rx's ?Medication ?Instructions ?Recorded cyclobenzaprine 10 mg tablet 10 mg PO Q8H Muscle spasm #10 tabs 07/29/20 naproxen 500 mg tablet 500 mg PO BID PRN pain #10 tabs 07/29/20 cyclobenzaprine 10 mg tablet 10 mg PO Q8H #20 tabs 12/03/21 ibuprofen 600 mg tablet 600 mg PO Q6H PRN Pain, Moderate 12/03/21 #30 tabs cyclobenzaprine 10 mg tablet 10 mg PO TID PRN muscle spasm #10 10/19/23 tabs ibuprofen 600 mg tablet 600 mg PO TID PRN fever or pain 10/19/23 #30 tabs Allergies Allergy/AdvReac Type Severity Reaction Status Date / Time codeine [CODEINE] Allergy Unknown UNKNOWN Verified 10/19/23 18:29 Penicillins [PCN] Allergy Unknown RASH Verified 07/29/20 10:50 acetaminophen [From TYLENOL] AdvReac Unknown STOMACH Verified 01/16/20 07:02 UPSET Review of Systems 2 Review of Systems: Constitutional : No Weight loss, No Fever, No Chills, No Night Sweats, No Fatigue, No Malaise ENT/Mouth : No Hearing loss, No Ear Pain, No Nasal Congestion, No Sinus Pain, No Hoarseness, No sore throat, No Rhinorrhea, No Swallowing Difficulty Eyes: No Eye Pain, No Swelling, No Redness, No Foreign Body, No Discharge, No Vision Changes Cardiovascular : No Chest Pain, No SOB, No Dyspnea on Exertion, No Orthopnea, No Edema, No Palpitations Respiratory : No Cough, No Sputum, No Wheezing, No Smoke Exposure, No Dyspnea Gastrointestinal : No Nausea, No Vomiting, No Diarrhea, No Constipation, complaining of left upper quadrant pain Genitourinary : no irregular bleeding, No Dysuria, No Urinary Frequency, No Hematuria, No Urinary Incontinence, No Urgency, No Flank Pain, No Urinary Flow Changes, No Hesitancy Musculoskeletal : Complaining of severe left rib pain and moderate neck pain Skin : No Skin Lesions, No rash Neuro : No Weakness, No Numbness, No Paresthesias, No Loss of Consciousness, No Dizziness, No Headache Psych : No Anxiety/Panic, No Depression, No SI/HI/AH/VH, No Social Issues, Heme/Lymph: No Bruising, No Bleeding,No Lymphadenopathy Endocrine : No Polyuria, No Polydipsia, No Temperature Intolerance [facility] Past Medical History Medical History Depression Alcoholism Hypertension Heroin abuse History of pelvic fracture Drug abuse, opioid type Surgical History History of surgery History of nasal surgery History of amputation of finger of left hand Family History Family History Father Medical history unknown Mother Medical history unknown Social History Social History Alcohol intake: never Smoked in Last 30 Days: Yes Use of substances other than those prescribed or required for medical reasons: No Advance Directives: No Advance Directives Information Provided: No Physical Exam 2 Vital Signs: Vital Signs: Last Vital Signs Temp 97.9 F 10/19/23 20:00 Pulse 61 10/19/23 20:00 Resp 16 10/19/23 20:00 BP 129/78 10/19/23 20:00 Pulse Ox 95 10/19/23 20:00 O2 Del Method Room Air 10/19/23 20:00 BMI result Body Mass Index 24.8 Const: Other: Appearance: Alert. Oriented X3. Patient's seems uncomfortable Eyes: Pupils equal, round and reactive to light. ENT: Pharynx normal. Neck: Patient's C-spine precautions, pain to palpation in all C-spine. CVS: Normal heart rate and rhythm. Pulses normal. Normal S1 and S2. Pain to palpation over the ribs on the left Respiratory: No respiratory distress. Breath sounds normal. No Wheezing. No rales Abdomen: Soft , moderately distended, pain to palpation in left upper quadrant. There 2nd ecchymosis/abrasion to the left upper quadrant. Bedside FAST negative Skin: Skin warm and dry. Normal skin color. Normal skin turgor. Extremities: No lower extremity edema. No Lacerations. No Rash Neuro: Oriented X 3. No motor deficit. No sensory deficit. Moving all extremities. No slurred speech. CN 2 through 12 grossly intact Psych: calm, cooperative, normal affect Course Course Course Narrative: -FAST negative -patient's vitals stable, blood pressure 128/85, heart rate 70, oxygen saturation 96% on room air -patient receiving IV fluids and morphine -CT scan of the head, cervical spine, chest abdomen and pelvis pending Medications Administered Discontinued Medications Generic Name Dose Route Start Last Admin Trade Name Freq PRN Reason Stop Dose Admin Sodium Chloride 1,000 mls @ 999 mls/hr 10/19/23 18:50 10/19/23 20:30 Ns IVCONT 10/19/23 19:50 Infused .Q1H1M ONE Infusion Morphine Sulfate 4 mg 10/19/23 18:50 10/19/23 19:13 Morphine Sulfate 4 Mg/Ml Cartridge IVPUSH 10/19/23 18:51 4 mg ONCE ONE Administration Protocol Medical Decision Making Medical Decision Making [facility] [place] Narrative: -I was informed by the patient's nurse that the patient ripped out his C-collar, patient refusing to put it back on -my interpretation of CT scan of the head: No intracranial bleed. Chest CT abdominal CT no obvious deformities. No obvious acute process. -patient has been walking around the emergency room, steady gait, stating that he wants to leave, states that he feels better. Differential Diagnosis Differential Diagnoses: The differential diagnosis associated with the presentation includes (Intracranial bleed, contusion, concussion, costochondritis, splenic laceration, rib fractures) Admission/Observation Consideration of admission/observation: Escalation of care including admission/observation considered (Given patient's initial presentation and mechanism of injury, observation was considered) Lab Data MDM Lab Attestation statement: I reviewed the patient's lab results. 10/19/23 19:27 10/19/23 19:27 Labs: Lab Results 10/19/23 10/19/23 Range/Units 19:27 20:49 WBC 7.4 (4.8-10.8) X10*3/uL RBC 4.21 L D (4.60-5.80) X10*6/uL Hgb 13.4 L (14.0-18.0) g/dl Hct 40.0 L (42.0-52.0) % MCV 95.0 (80.0-98.0) fL MCH 31.8 (27.0-33.0) pg MCHC 33.5 (31.0-36.0) g/dl RDW 14.8 (11.0-16.0) % Plt Count 164 (160-400) X10*3/uL MPV 8.8 L (9.4-12.4) fL Immature Gran % (Auto) 0.3 (0.0-0.4) % Neut % (Auto) 51.4 (45-73) % Lymph % (Auto) 35.7 (20-40) % [place] % (Auto) 9.9 (2-11) % Eos % (Auto) 2.2 (0-4) % Baso % (Auto) 0.5 (0-2) % Lymph # (Auto) 2.6 (1.2-4.9) X10*3/uL [place] # (Auto) 0.7 (0.1-1.2) X10*3/uL Eos # (Auto) 0.2 (0.0-0.4) X10*3/uL Baso # (Auto) 0.0 (0.0-0.2) X10*3/uL Abs Immat Gran (auto) 0.02 (0.00-0.03) X10*3/uL Absolute Neuts (auto) 3.8 (2.0-8.3) x10*3/uL Absolute Nucleated RBC 0.000 (0.0-0.012) X10*3/uL Nucleated RBC % (auto) 0.0 (0.0-0.2) /100WBC Sodium 139 (135-145) mmol/L Potassium 3.6 (3.3-5.1) mmol/L Chloride 106 (96-108) mmol/L Carbon Dioxide 27 (22-29) mmol/L Anion Gap 10 L (12-20) BUN 11 (9-16) mg/dL Creatinine 0.86 (0.5-1.4) mg/dL Estim Creat Clear Calc 98.5 Estimated GFR > 60 Random Glucose 92 (60-115) mg/dL Calcium 8.5 D (8.4-10.2) mg/dL Total Bilirubin 0.6 (0.0-1.0) mg/dL Direct Bilirubin 0.2 (0.0-0.5) mg/dL AST 45 H (5-37) U/L ALT 54 H (0-40) U/L Alkaline Phosphatase 92 (39-117) U/L Total Protein 7.4 (6.5-8.0) g/dL Albumin 3.2 L (3.5-5.0) g/dL Urine Opiates Screen POSITIVE H (Not Detect) Ur Buprenorphine Scrn Not Detected (Not Detect) ng/mL Ur Oxycodone Screen Not Detected (Not Detect) ng/mL Urine Methadone Screen Positive H (Not Detect) ng/mL Urine Fentanyl Screen POSITIVE H (Not Detect) Ur Barbiturates Screen Not Detected (Not Detect) Ur Phencyclidine Scrn Not Detected (Not Detect) Ur Amphetamines Screen Not Detected (Not Detect) U Benzodiazepines Scrn Not Detected (Not Detect) Urine Cocaine Screen Not Detected (Not Detect) U Marijuana (THC) Screen POSITIVE H (Not Detect) Ethyl Alcohol < 10 mg/dL Independent Interpretation I performed an independent interpretation of an: CT Scan Radiology Impression Discussion of test interpretation with radiology: I have reviewed the radiologist's reading. Radiologist Impression: BRAIN: There is no acute intra-axial, extra-axial bleed, masses or midline shift. There is no acute infarction in evolution. The boles to white matter differentiation is maintained normal. The lateral ventricles are symmetrical in size and configuration with mild enlargement. Bone windows reveal no calvarial abnormality. There is no scalp soft tissue normality. There is mild mucoperiosteal thickening floor of the left maxillary sinus. Rest of the paranasal sinuses are well-aerated and clear. CERVICAL SPINE: There is mild reversal of cervical lordosis. The vertebral heights and alignment is normal. There is mild loss of C5-C6, C6-C7 and C7-T1 disc heights with mild ventral spondylosis. The craniovertebral junction and the C1-C2 alignment is preserved. The prevertebral and paravertebral soft tissues are normal. The airway is widely patent. There is bilateral apical pleural thickening. CHEST: The lungs are the lungs are well-expanded and clear of acute pneumonic process. There is dependent bibasilar atelectasis. Minimal atelectasis visualized the right middle lobe medially. No pulmonary nodule, mass or consolidation. The thyroid lobes are symmetric and normal. The central trachea and the bronchi are widely patent. The heart size and the great vessels are normal caliber. No evidence aortic aneurysm or dissection seen. A three-vessel branching of aortic arch is noted. Mild coronary artery calcifications are present. There is no pericardial effusion. There is no pleural effusion, thickening or calcified pleural plaques. The axilla is unremarkable. There are deformities of right 9th, 10th and 11th posterior lateral ribs likely old healed fractures. ABDOMEN AND PELVIS: The liver is diffusely attenuated but normal size and contour. No focal lesion or intrahepatic ductal dilatation seen. There is a solitary gallstone without wall thickening. Visualized spleen, pancreas and bilateral adrenal glands unremarkable. Both kidney nephrograms are symmetrical in size and cortical thickness. No radiopaque renal calculi or hydronephrosis seen. No perinephric stranding. The abdominal aorta is normal caliber. No retroperitoneal lymph nodes or mass seen. The abdominal wall appears unremarkable. There is moderate stool and gas seen throughout the colon without distention. The small bowel loops are normal caliber. Appendix is normal caliber. No free air or free fluid seen. Imaging to the pelvis reveals unremarkable urinary bladder. The prostate gland is mildly enlarged with central gland calcification. No free fluid. No abnormal pelvic lymph nodes. Bone windows reveal mild degenerative disc changes L5/S1 disc level. There are large L5-S1 bridging osteophyte. No aggressive lytic or sclerotic process seen in dorsal or lumbosacral spine. CT/CT chest w IV con IMPRESSION: No acute process seen in the chest, abdomen or pelvis. Cholelithiasis. Fatty liver. Mild prostate enlargement with central gland calcifications. Moderate constipation. Critical Care Time Critical Care Time Critical Care Time: Yes Total Critical Care Time: 60 Attestation: I have personally provided critical care time. Time includes review of lab data, radiology results, discussion with consultants, and monitoring for potential decompensation. Intervention performed as documented. Discharge Plan Discharge Clinical Impression: Fall, Contusion, Costochondritis Patient Disposition: Home, Self-Care Instructions: Costochondritis (ED), Fall Prevention (ED) Additional Instructions: Please follow-up with your primary care physician tomorrow. If you have any worsening or new symptoms, please return to the emergency room or call 911 Prescriptions: New ibuprofen 600 mg tablet 600 mg PO TID PRN (Reason: fever or pain) Qty: 30 0RF cyclobenzaprine 10 mg tablet 10 mg PO TID PRN (Reason: muscle spasm) Qty: 10 0RF No Action cyclobenzaprine 10 mg tablet 10 mg PO Q8H Qty: 10 0RF naproxen 500 mg tablet 500 mg PO BID PRN (Reason: pain) Qty: 10 0RF cyclobenzaprine 10 mg tablet 10 mg PO Q8H Qty: 20 0RF ibuprofen 600 mg tablet 600 mg PO Q6H PRN (Reason: Pain, Moderate) Qty: 30 0RF Stand Alone Forms: Work/School Release Print Language: Croatian
[2023-10-19] MEDS: Morphine Sulfate 4 MG/ML CARTRIDGE IVPUSH (19:13)
[2023-10-19] MEDS: 0.9 % Sodium Chloride 1,000 ML 999 ML IVCONT (19:14)
[2023-10-19 19:33] LABS: MANUAL DIFF FLAG NO
[2023-10-19 19:36] LABS: Basophils Percent Auto 0.5 % (0-2); Eosinophils Absolute Auto 0.2 X10*3/uL (0.0-0.4); Eosinophils Percent Auto 2.2 % (0-4); Hemoglobin 13.4 g/dl (14.0-18.0); Imm Gran Abs Auto 0.02 X10*3/uL (0.00-0.03); Imm Gran Pct Auto 0.3 % (0.0-0.4); Lymphocytes Absolute Auto 2.6 X10*3/uL (1.2-4.9); Lymphocytes Percent Auto 35.7 % (20-40); Mean Corpuscular HGB Conc 33.5 g/dl (31.0-36.0); Mean Corpuscular Hemoglobin 31.8 pg (27.0-33.0); Mean Platelet Volume 8.8 fL (9.4-12.4); Monocytes Absolute Auto 0.7 X10*3/uL (0.1-1.2); Monocytes Percent Auto 9.9 % (2-11); Neutrophils Absolute Auto 3.8 x10*3/uL (2.0-8.3); Neutrophils Percent Auto 51.4 % (45-73); Platelet Count 164 X10*3/uL (160-400); Red Blood Count 4.21 X10*6/uL (4.60-5.80); Red Cell Distribution Width 14.8 % (11.0-16.0); White Blood Count 7.4 X10*3/uL (4.8-10.8)
[2023-10-19 19:56] LABS: Alanine Aminotransferase 54 U/L (0-40); Albumin Level 3.2 g/dL (3.5-5.0); Alkaline Phosphatase 92 U/L (39-117); Anion Gap 10 (12-20); Aspartate Amino Transferase 45 U/L (5-37); Bilirubin Direct 0.2 mg/dL (0.0-0.5); Blood Urea Nitrogen 11 mg/dL (9-16); Calcium 8.5 mg/dL (8.4-10.2); Carbon Dioxide 27 mmol/L (22-29); Chloride 106 mmol/L (96-108); Creatinine Clr Calc Pharmacy 98.5; Estimated Glomerular Filt Rate > 60; Ethanol < 10 mg/dL; Glucose Random 92 mg/dL (60-115); Potassium 3.6 mmol/L (3.3-5.1); Sodium 139 mmol/L (135-145); Total Protein 7.4 g/dL (6.5-8.0)
--- NOTE | 2023-10-19 19:58 | PC.NURSE ---
patient took off c-collar - education provided as to why it should remain in place, Patient refused to keep on and threw on the ground moving neck in circles. MD goldsmith
[2023-10-19 20:00] VITALS: BP 129/78; PULSE 61; RESP 16; TEMP 36.6; O2SAT 95
[2023-10-19 20:03] LABS: Bilirubin Total 0.6 mg/dL (0.0-1.0)
--- NOTE | 2023-10-19 20:06 | PC.NURSE ---
patient up to bathroom, still refusing to wear c collar or use urinal.
--- NOTE | 2023-10-19 20:37 | MHC.EDTECH ---
This tech assisted patient back to room. Patient walking in hallway. Patient stated are you the doctor? I m fine I want to see the doctor now or I'm leaving, I have that right. This tech informed patient that he would stil have to have his IV removed and that I would speak to his RN and make her aware of the situation. Spoke with RN and made her aware of the conversation.
[2023-10-19 21:06] LABS: Amphetamine Screen Urine Not Detected (Not Detect); Barbiturates, Urine Not Detected (Not Detect); Benzodiazepines Screen Urine Not Detected (Not Detect); Buprenorphine Scr Not Detected (Not Detect); Cannabinoid Screen Urine POSITIVE (Not Detect); Cocaine Screen Urine Not Detected (Not Detect); Fentanyl, urine POSITIVE (Not Detect); Methadone Screen, Urine Positive (Not Detect); Opiate Screen Urine POSITIVE (Not Detect); Oxycodone Screen Urine Not Detected (Not Detect); Phencyclidine Screen Urine Not Detected (Not Detect)
--- OUTSIDE RECORDS SUMMARY | 2023-10-19 21:12 | XMS_ITS | Continuity of Care Document ---
Author Organization [facility] ter Address [address] [place] [id number]- Care Team Providers Care Public Stenographer Name Role Phone Jeremias Estrada MD Primary Care Physician Encounter [facility] Date(s): 09/25/19 - 09/28/[address] [address]- [facility] Encounter Diagnosis Pelvic fracture(Final) - 09/25/19 Pelvic fracture(Final) - 09/27/19 Discharge Disposition: A-D/C Home Attending Physician: Kurt ELIZALDE, Milo Admitting Physician: Milton Shi Referring Physician: Not on Staff, Referring MD Allergies, Adverse Reactions, Alerts Substance Reaction Severity Status acetaminophen Active Medications aspirin 325 mg oral delayed release tablet 325 mg, 1, tablet, By Mouth, Daily, # 14 tablet, Refills 0, Tot. Refills 0, Maintenance, 09/28/19 9:11:00 EDT, Route to Pharmacy Electronically, [facility], 180, cm, 09/28/19 7:59:00 EDT, Height, 60.3, kg, 09/26/19 11:28:00 EDT, Dry Weight Start Date: 09/28/19 Stop Date: 10/12/19 Status: Ordered clonazePAM 0.5 mg oral tablet 1 tablet = 0.5 mg, By Mouth, 2 times a day, 0 Refills, Maintenance, 09/25/19 16:16:00 EDT, Tablet Start Date: 09/25/19 Status: Ordered oxyCODONE 5 mg oral tablet 15 mg, 3, tablet, By Mouth, Every 6 hours, PRN, for 3 days, # 12 tablet, Refills 0, Tot. Refills 0,Acute 10/01/19 9:07:00 EDT, Pain , Moderate, 09/28/19 9:07:00 EDT, Route to Pharmacy Electronically, [facility], Partial fill upon patien... Start Date: 09/28/19 Stop Date: 10/01/19 Status: Ordered Suboxone 8 mg-2 mg sublingual film 1 film, Sublingual, 2 times a day, dissolve under the tongue Dose verified 09/25/19; Provider Zahira Cruz CALL CENTER TEAM LEADER at [facility], 0 Refills, Maintenance, 09/25/19 16:16:00 EDT, Film Start Date: 09/25/19 Status: Ordered Problem List Condition Effective Dates Status Health Status Inform ant Anxiety(Confirmed) Active Substance use disorder(Confirmed) Active Results Radiology Reports * Exam Date Time Procedure Performing Provider Status 09/25/19 3:55 PM Pelvis Min 3 Views Shahbaz Osunah (Verified) Notes: (Pelvis Min 3 Views) Reason For Exam: fracture;Pain RESULT: Pelvis Min 3 Views Pelvis Min 3 Views REASON: Pain; fracture Clinical Question(s): Fracture Hx of Present Illness: Back pain s p fall x 1 week ago COMPARISON: CT abdomen and pelvis 09/25/2019 FINDINGS: Multiple pelvic and sacral fractures are better evaluated on recent CT. Right superior pubic ramus fracture. Displaced left inferior pubic ramus fracture. Left acetabular fracture. Right sacral fracture is not well seen due to overlying bowel gas. Normal soft tissues. IMPRESSION: Multiple pelvic and sacral fractures are better evaluated on recent CT. I have personally reviewed the images and I agree with this report. WSN: [id number] Ordering Physician: Madid Mireles Dictated By: Britton Mahmood DO Dictated Date/Time: 09/25/19 4:17 pm Reviewed By: Jamie Chen MD Signed By: Jamie Chen MD Signed Date/Time: 09/25/19 4:22 pm Transcribed By: ANDRÉS Transcribed Date/Time: 09/25/19 4:14 pm Vital Signs Most recent to oldest [Reference Range]: 1 2 3 Height 180 cm (09/28/19 7:59 AM) 180 cm (09/28/19 4:41 AM) 180 cm (09/28/19 12:49 AM) Weight 60.3 kg (09/26/19 11:28 AM) 69 kg (09/26/19 8:04 AM) 69 kg (09/26/19 4:43 AM) Oxygen Saturation [94-100 %] 100 % (09/28/19 7:59 AM) 97 % (09/28/19 4:41 AM) 100 % (09/28/19 12:49 AM) Pulse Rate [55-90 bpm] 59 bpm (09/28/19 7:59 AM) 58 bpm (09/28/19 4:41 AM) 50 bpm *L* (09/28/19 12:49 AM) Body Mass Index [18.5-24.99] 18.61 (09/26/19 11:28 AM) 21.3 (09/26/19 8:04 AM) 21.3 (09/26/19 4:43 AM) Blood Pressure [90-138/55-84 mm Hg] 125/77mm Hg (09/28/19 7:59 AM) 118/81mm Hg (09/28/19 4:41 AM) 133/70mm Hg (09/28/19 12:49 AM) Respiratory Rate [16-30 br/min] 18 br/min (09/28/19 10:41 AM) 18 br/min (09/28/19 10:25 AM) 18 br/min (09/28/19 9:30 AM) Temperature [96.8-100.4 DegF] 98.6 DegF (09/28/19 7:59 AM) 98.0 DegF (09/28/19 4:41 AM) 98.7 DegF (09/28/19 12:49 AM) Mode of Delivery (Oxygen) Room air (09/28/19 7:59 AM) Room air (09/28/19 4:41 AM) Room air (09/28/19 12:49 AM) Blood pressure sites Arm, right (09/28/19 7:59 AM) Arm, right (09/28/19 4:41 AM) Arm, right (09/28/19 12:49 AM) Temperature Route Oral (09/28/19 7:59 AM) Oral (09/28/19 4:41 AM) Oral (09/28/19 12:49 AM) Dry Weight 60.3 kg (09/26/19 11:28 AM) 69 kg (09/26/19 8:04 AM) 69 kg (09/26/19 4:43 AM) Weight Obtained Via Patient/family state d (09/25/19 10:33 AM) Dry Weight Obtained Via Patient/family s tated (09/25/19 10:33 AM) Social History Social History Type Response Smoking Status Cigars or pipes kiel y within last 30 days entered on: 09/25/19 Sex
--- OUTSIDE RECORDS SUMMARY | 2023-10-19 21:12 | XMS_ITS | Continuity of Care Document ---
Author Organization [facility] ter Address [address] [place] [id number]- Care Team Providers Care Metalsmith Helper Name Role Phone Jeremias Estrada MD Primary Care Physician Encounter [facility] Date(s): 10/11/19 - 10/11/[address] [address] Discharge Disposition: A-D/C Home Attending Physician: Elie Machado MD Admitting Physician: Elie Machado MD Referring Physician: Not on Staff, Referring MD Allergies, Adverse Reactions, Alerts Substance Reaction Severity Status acetaminophen Active Medications aspirin 325 mg oral delayed release tablet 325 mg, 1, tablet, By Mouth, Daily, # 14 tablet, Refills 0, Tot. Refills 0, Maintenance, 09/28/19 9:11:00 EDT, Route to Pharmacy Electronically, [facility], 180, cm, 09/28/19 7:59:00 EDT, Height, 60.3, kg, 09/26/19 11:28:00 EDT, Dry Weight Start Date: 09/28/19 Stop Date: 10/12/19 Status: Ordered clonazePAM 0.5 mg oral tablet 1 tablet = 0.5 mg, By Mouth, 2 times a day, 0 Refills, Maintenance, 09/25/19 16:16:00 EDT, Tablet Start Date: 09/25/19 Status: Ordered oxyCODONE 10 mg oral tablet 2 tablet = 20 mg, By Mouth, Every 6 hours, PRN as needed for pain, # 12 tablet, 0 Refills, Maintenance, 10/11/19 12:36:00 EDT, Tablet, [facility], Partial fill upon patient request, 180, cm, 09/28/19 7:59:00 EDT, Height, 60.3, kg, 2... Start Date: 10/11/19 Status: Ordered Suboxone 8 mg-2 mg sublingual film 1 film, Sublingual, 2 times a day, dissolve under the tongue Dose verified 09/25/19; Provider Zahira Cruz NP at [facility], 0 Refills, Maintenance, 09/25/19 16:16:00 EDT, Film Start Date: 09/25/19 Status: Ordered Problem List Condition Effective Dates Status Health Status Inform ant Anxiety(Confirmed) Active Substance use disorder(Confirmed) Active Vital Signs Most recent to oldest [Reference Range]: 1 2 3 Oxygen Saturation [94-100 %] 100 % (10/11/19 11:52 AM) 100 % (10/11/19 8:47 AM) Pulse Rate [55-90 bpm] 59 bpm (10/11/19 11:52 AM) 60 bpm (10/11/19 8:47 AM) Blood Pressure [90-138/55-84 mm Hg] 134/85mm Hg (10/11/19 11:52 AM) 134/80mm Hg (10/11/19 8:47 AM) Respiratory Rate [16-30 br/min] 17 br/min (10/11/19 11:52 AM) 18 br/min (10/11/19 11:40 AM) 20 br/min (10/11/19 9:07 AM) Temperature [96.8-100.4 DegF] 98.2 DegF (10/11/19 11:52 AM) 98.0 DegF (10/11/19 8:47 AM) Mode of Delivery (Oxygen) Room air (10/11/19 11:52 AM) Room air (10/11/19 8:47 AM) Blood pressure sites Arm, left (10/11/19 8:47 AM) Temperature Route Oral (10/11/19 11:52 AM) Oral (10/11/19 8:47 AM) Social History Social History Type Response Smoking Status Cigars or pipes kiel y within last 30 days entered on: 09/25/19 Sex
[2023-10-19 21:26] VITALS: BP 138/84; PULSE 71; RESP 16; TEMP 36.6; O2SAT 95
== END 2023-10-19 21:28 | disposition home or self-care (01) ==
PROVIDERS: Emergency Provider Emergency Medicine
DX: S20.212A Contusion of left front wall of thorax, initial encounter (principal); R07.89 Other chest pain; R10.12 Left upper quadrant pain; M94.0 Chondrocostal junction syndrome [Tietze]; M54.2 Cervicalgia; Y29.XXXA Contact with blunt object, undetermined intent, initial encounter; Y93.89 Activity, other specified; Y92.89 Other specified places as the place of occurrence of the external cause; Y99.8 Other external cause status; Z79.899 Other long term (current) drug therapy
CPT/HCPCS: 36415; 70450; 71260; 72125; 74177; 80048; 80076; 80307; 85025; 93005; 96361; 96374; 99284; 99285; J2270

== ENCOUNTER → 2023-10-19 18:47 | Outpatient (BNV) | payer MEDICAID, SELFPAY | PROVIDERS: Emergency Provider Emergency Medicine; Visit Provider Internal Medicine Cardiovascular Disease | DX: R94.31 Abnormal electrocardiogram [ECG] [EKG] (principal) | CPT/HCPCS: 93010 ==

== ENCOUNTER 2023-11-02 14:59 | Emergency (ER) | payer MEDICAID, SELFPAY ==
--- NOTE | ~2023-11-02 | CT_ITS ---
EXAMINATION: CT HEAD WITHOUT CONTRAST CLINICAL INFORMATION: Lower extremity weakness, recurrent fall. COMPARISON: CT head 10/19/2023. TECHNIQUE: Contiguous axial imaging was performed from the skull base to vertex without intravenous administration of contrast. This CT examination was performed using dose optimization techniques as appropriate, variously including the following: *Automated exposure control *Adjustment of mA and/or kV according to patient size (this includes techniques or standardized protocols for targeted exams where dose is matched to indication/reason for exam; i.e. extremities or head) *Use of iterative reconstruction technique DLP: 619 mGy-cm FINDINGS: There is no evidence of acute intracranial hemorrhage or edematous territorial infarction. A few foci of hypoattenuation in the periventricular and deep white matter are consistent with mild microangiopathy. Chauhan-white matter differentiation is preserved. Proportional prominence of the ventricles and sulcal spaces. No evidence for obstructive hydrocephalus. No abnormal mass effect or midline shift. No extra-axial fluid collections. No acute soft tissue or osseous abnormalities. The mastoid air cells and paranasal sinuses are clear. CT/CT head/brain wo IV con IMPRESSION: No evidence of acute intracranial hemorrhage or edematous territorial infarction.
--- NOTE | ~2023-11-02 | XR_ITS ---
EXAMINATION: XR CHEST CLINICAL INFORMATION: Shortness of breath COMPARISON: CT from 10/19/2023 TECHNIQUE: Frontal view of the chest was obtained. FINDINGS: No significant abnormality is noted involving the heart, lungs, mediastinum, bony thorax or soft tissues. XR/XR chest 1V IMPRESSION: Unremarkable examination.
--- NOTE | 2023-11-02 15:03 | ECG_ITS ---
Test Reason : neuro symptom Blood Pressure : / mmHG Vent. Rate : 079 BPM Atrial Rate : 079 BPM P-R Int : 174 ms QRS Dur : 140 ms QT Int : 450 ms P-R-T Axes : 059 -60 066 degrees QTc Int : 516 ms Normal sinus rhythm Left axis deviation Left bundle branch block Abnormal ECG When compared with ECG of 19-OCT-2023 18:47, Left bundle branch block is now Present Referred By: Bhavana Roe Electronically Signed By:EMERALD DAVIS
--- NOTE | 2023-11-02 15:03 | ED.SOB ---
HPI - SOB/Dyspnea General Chief Complaint: Neuro Symptoms/Deficit Stated Complaint: vertigo, labored breathing Related Data Home Medications ?Medication ?Instructions ?Recorded ?Confirmed buprenorphine 8 mg-naloxone 2 mg film sublingual 12/16/19 sublingual film clonazepam 0.5 mg tablet 0.5 mg PO BID 12/16/19 naloxone 4 mg/actuation nasal 4 mg intranasal Q2M PRN 12/16/19 spray (Narcan) Previous Rx's ?Medication ?Instructions ?Recorded cyclobenzaprine 10 mg tablet 10 mg PO Q8H Muscle spasm #10 tabs 07/29/20 naproxen 500 mg tablet 500 mg PO BID PRN pain #10 tabs 07/29/20 cyclobenzaprine 10 mg tablet 10 mg PO Q8H #20 tabs 12/03/21 ibuprofen 600 mg tablet 600 mg PO Q6H PRN Pain, Moderate 12/03/21 #30 tabs cyclobenzaprine 10 mg tablet 10 mg PO TID PRN muscle spasm #10 10/19/23 tabs ibuprofen 600 mg tablet 600 mg PO TID PRN fever or pain 10/19/23 #30 tabs Allergies Allergy/AdvReac Type Severity Reaction Status Date / Time codeine [CODEINE] Allergy Unknown UNKNOWN Verified 11/02/23 15:07 Penicillins [PCN] Allergy Unknown RASH Verified 11/02/23 15:07 acetaminophen [From TYLENOL] AdvReac Unknown STOMACH Verified 11/02/23 15:07 UPSET PMFSH Past Medical History Medical History Depression Alcoholism Hypertension Heroin abuse History of pelvic fracture Drug abuse, opioid type Surgical History History of surgery History of nasal surgery History of amputation of finger of left hand Family History Family History Father Medical history unknown Mother Medical history unknown Social History Social History Alcohol intake: never Advance Directives: No Advance Directives Information Provided: No Do you have a plan to hurt others: No Plan Physical Exam Vital Signs: Vital Signs: Last Vital Signs Temp 97.1 F 11/02/23 15:06 Pulse 86 11/02/23 15:06 Resp 26 H 11/02/23 15:06 BP 171/98 H 11/02/23 15:06 Pulse Ox 100 11/02/23 15:06 O2 Del Method Room Air 11/02/23 15:06 BMI result Body Mass Index 21.6 Course Course Course Narrative: This is a Rapid Medical Examination (RME) performed by Marquise Roe PA-C in triage. Full HPI, ROS, assessment and treatment plan per primary provider in the Main ED. 58-year-old male with history of depression, GERD, alcohol use disorder, HTN, polysubstance use, on methadone maintenance who presents to the ER from outpatient psych clinic for evaluation of labored breathing and ?inability to control all 4 limbs and inability to walk. ? He reportedly had several falls on the way to the clinic. Symptoms escalated to while patient was in the waiting room. In triage patient is diaphoretic, moaning and breathing heavily. Equal UE strength and bilateral LE weakness noted, unable to lift off of chair transiently then moving them spontaneously with resolution of SOB. His VS are stable. RV counselor at the patient's side with him. ok to go to waiting room pending bed availability. Plan: CT head, labs, EKG, tox screen ETOH Medical Decision Making Lab Data 11/02/23 15:28 11/02/23 15:28 Labs: Lab Results 11/02/23 11/02/23 Range/Units 15:17 15:28 WBC 9.0 (4.8-10.8) X10*3/uL RBC 4.80 (4.60-5.80) X10*6/uL Hgb 15.1 (14.0-18.0) g/dl Hct 45.2 (42.0-52.0) % MCV 94.2 (80.0-98.0) fL MCH 31.5 (27.0-33.0) pg MCHC 33.4 (31.0-36.0) g/dl RDW 14.1 (11.0-16.0) % Plt Count 221 D (160-400) X10*3/uL MPV 8.7 L (9.4-12.4) fL Immature Gran % (Auto) 0.6 H (0.0-0.4) % Neut % (Auto) 70.6 (45-73) % Lymph % (Auto) 21.5 (20-40) % Evangeline % (Auto) 6.2 (2-11) % Eos % (Auto) 0.8 (0-4) % Baso % (Auto) 0.3 (0-2) % Lymph # (Auto) 1.9 (1.2-4.9) X10*3/uL Evangeline # (Auto) 0.6 (0.1-1.2) X10*3/uL Eos # (Auto) 0.1 (0.0-0.4) X10*3/uL Baso # (Auto) 0.0 (0.0-0.2) X10*3/uL Abs Immat Gran (auto) 0.05 H (0.00-0.03) X10*3/uL Absolute Neuts (auto) 6.3 (2.0-8.3) x10*3/uL Absolute Nucleated RBC 0.000 (0.0-0.012) X10*3/uL Nucleated RBC % (auto) 0.0 (0.0-0.2) /100WBC Sodium 138 (135-145) mmol/L Potassium 3.6 (3.3-5.1) mmol/L Chloride 104 (96-108) mmol/L Carbon Dioxide 24 (22-29) mmol/L Anion Gap 14 (12-20) BUN 12 (9-16) mg/dL Creatinine 1.06 (0.5-1.4) mg/dL Estim Creat Clear Calc 74.6 Estimated GFR > 60 POC Glucose 105 (60-115) mg/dL Random Glucose 101 (60-115) mg/dL Calcium 10.0 D (8.4-10.2) mg/dL Magnesium 1.6 (1.6-2.6) mg/dL Total Bilirubin 0.7 (0.0-1.0) mg/dL Direct Bilirubin 0.3 (0.0-0.5) mg/dL AST 41 H (5-37) U/L ALT 41 H (0-40) U/L Alkaline Phosphatase 130 H (39-117) U/L Total Creatine Kinase 379 H (38-174) U/L Troponin I High Sens 7.8 (<3.5-35.0) ng/L B-Natriuretic Peptide 51 (<100) pg/mL Total Protein 8.7 H (6.5-8.0) g/dL Albumin 3.8 (3.5-5.0) g/dL Ethyl Alcohol < 10 mg/dL COVID-19 (CALI) Negative (Negative) COVID-19 Clin Com See Note Discharge Plan Discharge Clinical Impression: Shortness of breath Patient Disposition: Left W/O Completing Treatment Prescriptions: No Action cyclobenzaprine 10 mg tablet 10 mg PO Q8H Qty: 10 0RF naproxen 500 mg tablet 500 mg PO BID PRN (Reason: pain) Qty: 10 0RF cyclobenzaprine 10 mg tablet 10 mg PO Q8H Qty: 20 0RF ibuprofen 600 mg tablet 600 mg PO Q6H PRN (Reason: Pain, Moderate) Qty: 30 0RF ibuprofen 600 mg tablet 600 mg PO TID PRN (Reason: fever or pain) Qty: 30 0RF cyclobenzaprine 10 mg tablet 10 mg PO TID PRN (Reason: muscle spasm) Qty: 10 0RF Discharge Date/Time: 11/02/23 18:34
[2023-11-02 15:06] VITALS: BP 171/98; PULSE 86; RESP 26; TEMP 36.2; O2SAT 100; BMI 21.6
[2023-11-02 15:32] LABS: MANUAL DIFF FLAG NO
[2023-11-02 15:40] LABS: Basophils Percent Auto 0.3 % (0-2); Eosinophils Absolute Auto 0.1 X10*3/uL (0.0-0.4); Eosinophils Percent Auto 0.8 % (0-4); Hematocrit 45.2 % (42.0-52.0); Hemoglobin 15.1 g/dl (14.0-18.0); Imm Gran Abs Auto 0.05 X10*3/uL (0.00-0.03); Imm Gran Pct Auto 0.6 % (0.0-0.4); Lymphocytes Absolute Auto 1.9 X10*3/uL (1.2-4.9); Lymphocytes Percent Auto 21.5 % (20-40); Mean Corpuscular HGB Conc 33.4 g/dl (31.0-36.0); Mean Corpuscular Hemoglobin 31.5 pg (27.0-33.0); Mean Corpuscular Volume 94.2 fL (80.0-98.0); Mean Platelet Volume 8.7 fL (9.4-12.4); Monocytes Absolute Auto 0.6 X10*3/uL (0.1-1.2); Monocytes Percent Auto 6.2 % (2-11); Neutrophils Absolute Auto 6.3 x10*3/uL (2.0-8.3); Neutrophils Percent Auto 70.6 % (45-73); Platelet Count 221 X10*3/uL (160-400); Red Cell Distribution Width 14.1 % (11.0-16.0)
[2023-11-02 15:46] LABS: COVID-19 Test Negative (Negative); IDNOW Serial# 58CA691E
[2023-11-02 15:51] LABS: Alanine Aminotransferase 41 U/L (0-40); Albumin Level 3.8 g/dL (3.5-5.0); Alkaline Phosphatase 130 U/L (39-117); Anion Gap 14 (12-20); Aspartate Amino Transferase 41 U/L (5-37); Bilirubin Direct 0.3 mg/dL (0.0-0.5); Bilirubin Total 0.7 mg/dL (0.0-1.0); Blood Urea Nitrogen 12 mg/dL (9-16); Carbon Dioxide 24 mmol/L (22-29); Chloride 104 mmol/L (96-108); Creatinine Clr Calc Pharmacy 74.6; Estimated Glomerular Filt Rate > 60; Glucose Random 101 mg/dL (60-115); Magnesium 1.6 mg/dL (1.6-2.6); Potassium 3.6 mmol/L (3.3-5.1); Sodium 138 mmol/L (135-145); Total Protein 8.7 g/dL (6.5-8.0)
[2023-11-02 15:53] LABS: Ethanol < 10 mg/dL
[2023-11-02 15:56] LABS: B Type Natriuretic Peptide 51 pg/mL (<100)
[2023-11-02 15:59] LABS: Troponin-I High Sensitivity 7.8 ng/L (<3.5-35.0)
[2023-11-02 20:02] LABS: Glucose, Whole Blood 105 mg/dL (60-115)
== END 2023-11-02 18:34 | disposition left against medical advice (07) ==
PROVIDERS: Physician Assistant; Emergency Provider Emergency Medicine
DX: R06.02 Shortness of breath (principal); R42 Dizziness and giddiness; F32.A Depression, unspecified; F10.20 Alcohol dependence, uncomplicated; Y90.0 Blood alcohol level of less than 20 mg/100 ml; F11.10 Opioid abuse, uncomplicated; I10 Essential (primary) hypertension; Z79.899 Other long term (current) drug therapy
CPT/HCPCS: 36415; 70450; 71045; 80048; 80076; 80307; 82550; 82947; 83735; 83880; 84484; 85025; 87635; 93005; 99283; 99284

== ENCOUNTER → 2023-11-02 15:03 | Outpatient (BNV) | payer MEDICAID, SELFPAY | PROVIDERS: Emergency Provider Emergency Medicine; Visit Provider Internal Medicine | DX: R94.31 Abnormal electrocardiogram [ECG] [EKG] (principal) | CPT/HCPCS: 93010 ==

== ENCOUNTER 2024-08-06 10:57 | Emergency (ER) | payer MEDICAID, SELFPAY ==
--- NOTE | ~2024-08-06 | XR_ITS ---
CLINICAL HISTORY: pain, injury 3 view left foot Comparison: None Findings: There is a bone fragment adjacent to the medial malleolus. Remaining bony structures appear intact. No dislocation. Moderate arthritic change of the tibiotalar joint. No significant loss of joint space, osteophytes, or erosions. No ankle effusion. No radiopaque foreign body. IMPRESSION: There is a bone fragment adjacent to the medial malleolus. This is felt to most likely be chronic but an acute fracture is not excluded. This document has been electronically signed by: Syl Ku MD on 08/06/2024 13:12:40
--- NOTE | ~2024-08-06 | XR_ITS ---
CLINICAL HISTORY: pain, injury 2 view left ankle Comparison: CR - XR FOOT LT MIN 3V - 08/06/24 11:32 EDT Findings: There is a 1.3 cm bone fragment adjacent to the medial malleolus. No dislocation. Symmetric ankle mortise. Mild arthritic change. No ankle effusion. No radiopaque foreign body. IMPRESSION: There is a bone fragment adjacent to the medial malleolus. This is most likely chronic but an acute avulsed bone fragment is not excluded. This document has been electronically signed by: Syl Ku MD on 08/06/2024 13:12:57
[2024-08-06 11:04] VITALS: BP 123/89; PULSE 78; O2SAT 97
--- NOTE | 2024-08-06 11:08 | ED_ITS ---
HPI - General Adult General Chief complaint: Extremity Injury, Lower Stated complaint: L FOOT PAIN/SWELLING SINCE WEDNESDAY PER EMS Time Seen by Provider: 08/06/24 11:07 Source: patient and EMS Mode of arrival: EMS Limitations: no limitations History of Present Illness ED Provider: Izabela Torres PA-C HPI narrative: Patient is a 59 year old assigned male at with a history of alcoholism, HTN, heroin use/abuse, gout, and depression presenting to the emergency department today with left foot and ankle pain. Patient states that 2 days ago he woke up with significant left foot and ankle pain. Patient states that he has a history of gout but it usually affects his right side - not his left. Patient denies any dizziness, lightheadedness, abdominal pain, nausea, vomiting, fever, chills, blurry vision, double vision, loss of vision, chest pain, difficulty breathing, shortness of breath, back pain, night sweats, pain with urination, increased urinary frequency, increased urinary urgency, blood in his urine or stool, syncope or a near syncopal episode, recent trauma or falls, bowel incontinence, bladder incontinence, or any other complaints at this time. Onset (ago): day(s) (2) Location: left and lower extremity Relieving factors: none Exacerbating factors: movement Associated symptoms: denies other symptoms Treatments prior to arrival: none Related Data Home Medications ?Medication ?Instructions ?Recorded ?Confirmed buprenorphine 8 mg-naloxone 2 mg film sublingual 12/16/19 sublingual film clonazepam 0.5 mg tablet 0.5 mg PO BID 12/16/19 naloxone 4 mg/actuation nasal 4 mg intranasal Q2M PRN 12/16/19 spray (Narcan) Previous Rx's ?Medication ?Instructions ?Recorded cyclobenzaprine 10 mg tablet 10 mg PO Q8H Muscle spasm #10 tabs 07/29/20 naproxen 500 mg tablet 500 mg PO BID PRN pain #10 tabs 07/29/20 cyclobenzaprine 10 mg tablet 10 mg PO Q8H #20 tabs 12/03/21 ibuprofen 600 mg tablet 600 mg PO Q6H PRN Pain, Moderate 12/03/21 #30 tabs cyclobenzaprine 10 mg tablet 10 mg PO TID PRN muscle spasm #10 10/19/23 tabs ibuprofen 600 mg tablet 600 mg PO TID PRN fever or pain 10/19/23 #30 tabs doxycycline hyclate 100 mg tablet 100 mg PO BID 7 days #14 tabs 08/06/24 naproxen 500 mg tablet 500 mg PO BID 7 days #14 tabs 08/06/24 prednisone 20 mg tablet See Rx Instructions .Route 08/06/24 .COMPLEX 9 days #18 tabs Allergies Allergy/AdvReac Type Severity Reaction Status Date / Time codeine [CODEINE] Allergy Unknown UNKNOWN Verified 08/06/24 11:19 Penicillins [PCN] Allergy Unknown RASH Verified 08/06/24 11:19 acetaminophen [From TYLENOL] AdvReac Unknown STOMACH Verified 08/06/24 11:19 UPSET Review of Systems 2 Constitutional: Constitutional: Reports no additional constitutional complaints, Denies chills, Denies fever(s) and Denies night sweats Eyes: Eyes: Reports no additional eye complaints, Denies blurry vision, Denies change in vision, Denies diplopia, Denies eye discharge, Denies loss of vision and Denies eye pain ENT: Denies dizziness Cardiovascular: Cardiovascular: Reports no additional cardiovascular complaints, Denies chest pain, Denies lightheadedness, Denies Loss of Consciousness and Denies dyspnea Respiratory: Respiratory: Reports no additional respiratory complaints and Denies dyspnea Gastrointestinal: Gastrointestinal: Reports no additional gastrointestinal complaints, Denies abdominal pain, Denies melena, Denies hematochezia, Denies change in bowel habits and Denies change in stool character Genitourinary: Genitourinary: Reports no additional male genitourinary complaints, Denies hematuria, Denies oliguria, Denies difficulty urinating, Denies dysuria, Denies urinary frequency, Denies urinary hesitancy, Denies urinary incontinence and Denies urinary urgency Musculoskeletal: Musculoskeletal: Reports no additional musculoskeletal complaints, Denies numbness and Denies tingling Comments: left foot and ankle pain Neurologic: Denies dizziness, Denies loss of vision, Denies numbness and Denies tingling Psychiatric: Psychiatric: Reports no additional psychiatric complaints Endocrine: Endocrine: Reports no additional endocrine complaints Hematologic/Lymphatic: Hematologic/Lymphatic: Reports no additional hematologic/lymphatic complaints Allergic/Immunologic: Allergic/Immunologic: Reports no additional allergic/immunologic complaints PMFSH Past Medical History Attestation statement: The following information was validated with the patient. Source: old records reviewed and nursing notes reviewed Medical History Depression Alcoholism Hypertension Heroin abuse History of pelvic fracture Drug abuse, opioid type Surgical History History of surgery History of nasal surgery History of amputation of finger of left hand Family History Family History Father Medical history unknown Mother Medical history unknown Social History Social History Alcohol intake: never Substance Use Type: Former Substance User Advance Directives: No Advance Directives Information Provided: Yes Do you have a plan to hurt others: No Plan Physical Exam ED Vital Signs: Vital Signs - 24 hr 08/06/24 11:17 08/06/24 14:00 08/06/24 14:45 Temperature 97.8 F 98.1 F 98.1 F Pulse Rate 85 66 66 Respiratory Rate 16 16 16 Blood Pressure 117/86 107/68 107/68 Pulse Oximetry 95 95 95 Oxygen Delivery Method Room Air Room Air Room Air BMI result Body Mass Index 24.5 Const General: cooperative, no acute distress, alert and awake Nutritional Appearance: well nourished Orientation/consciousness: patient oriented x3 HENMT Head: Yes normal to inspection and Yes atraumatic Ears: hearing grossly normal bilaterally and external ears normal General nose exam: Normal external nose present, no nasal discharge noted and no epistaxis Face and sinus: Yes normal facial exam, No abrasion and No laceration Mouth: Normal oral and palatal mucosa present, no drooling and no muffled voice Eyes General: appearance normal, both eyes and all related structures Periorbital: periorbital findings normal Eyelids: Yes eyelids normal Conjunctivae: conjunctivae normal Pupils: Equal, round and reactive pupils present EOM: EOMs intact bilaterally Neck Neck: Yes normal visual inspection, Yes full ROM and Yes no lymphadenopathy Resp Effort & Inspection: normal respiratory effort and able to speak in complete sentences Neuro General: patient oriented x3, moves all extremities and CN's II-XI intact bilaterally Cranial nerves: Yes Equal, round and reactive pupils present Cognition (Neuro): normal cognition Extrem Other: minimal swelling present to the dorsal aspect of the left foot and ankle with some warmth to the area pain with palpation primarily over the left, dorsal, lateral, foot General: Yes full ROM and Yes capillary refill normal Psych Appearance: grossly normal Mental Status: mental status grossly normal Affect: normal affect Attitude: cooperative Thought process: Normal thought process present Thought content: Normal thought content present Insight: Good insight present (Psych) Medications Administered Discontinued Medications Generic Name Dose Route Start Last Admin Trade Name Peggy PRN Reason Stop Dose Admin Ketorolac Tromethamine 15 mg 08/06/24 11:30 08/06/24 11:58 Ketorolac Tromethamine 15 Mg/Ml Vial IM 08/06/24 11:31 15 mg ONCE ONE Administration Medical Decision Making Medical Decision Making [facility] Narrative: Patient is a 59 year old assigned male at with a history of alcoholism, HTN, heroin use/abuse, gout, and depression presenting to the emergency department today with left foot and ankle pain. Patient's physical exam was as noted in the physical exam portion of this note. Patient's blood work showed an elevated ESR of 53, CRP of 15.47, and a uric acid of 8.6. Patient's left foot and ankle x-rays showed evidence of an old fracture - which the patient confirmed he had a history of from a skiing accident years ago, but were otherwise unremarkable. Patient's clinical presentation is most consistent with a gout flare vs. dorsal foot cellulitis vs. arthritic flare. I discussed the case with the orthopedic team who did not recommend treatment for the chronic avulsion fracture found or tapping the ankle / foot joints. Patient prescribed medication for pain and an antibiotic to cover for a possible cellulitis. Patient's clinical presentation is not consistent with a septic joint. I explained my physical exam findings as well as all test results to the patient. I answered all questions asked by the patient.I stressed the importance of the patient taking his medication as directed (either prescribed or as the over the counter packaging recommends). I stressed the importance of the patient following up with his primary care provider and the orthopedic team. I stressed the importance of the patient returning to the emergency department immediately if his symptoms were to worsen or if he were to develop any dizziness, shortness of breath, difficulty breathing, chest pain, blurry vision, loss of vision, nausea, vomiting, abdominal pain, fever, chills, back pain, or any other complaints. Patient verbalized agreement and understanding with this treatment plan and discharge. Differential Diagnosis Differential Diagnoses: The differential diagnosis associated with the presentation includes Gout Cellulitis Arthritis Admission/Observation Consideration of admission/observation: Escalation of care including admission/observation considered Patient would have been admitted to the hospital had his work up had any findings where hospital admission was appropriate and his clinical presentation warranted hospital admission. Lab Data [facility] Lab Attestation statement: I reviewed the patient's lab results. My interpretation of these results are in the [facility] Rationale portion of this note. 08/06/24 11:43 08/06/24 11:43 Labs: Lab Results 08/06/24 Range/Units 11:43 WBC 10.2 (4.8-10.8) X10*3/uL RBC 5.55 (4.60-5.80) X10*6/uL Hgb 17.3 (14.0-18.0) g/dl Hct 51.7 (42.0-52.0) % MCV 93.2 (80.0-98.0) fL MCH 31.2 (27.0-33.0) pg MCHC 33.5 (31.0-36.0) g/dl RDW 13.4 (11.0-16.0) % Plt Count 203 (160-400) X10*3/uL MPV 9.3 L (9.4-12.4) fL Immature Gran % (Auto) 0.4 (0.0-0.4) % Neut % (Auto) 63.1 (45-73) % Lymph % (Auto) 26.0 (20-40) % Esmeralda % (Auto) 9.8 (2-11) % Eos % (Auto) 0.4 (0-4) % Baso % (Auto) 0.3 (0-2) % Lymph # (Auto) 2.7 (1.2-4.9) X10*3/uL Esmeralda # (Auto) 1.0 (0.1-1.2) X10*3/uL Eos # (Auto) 0.0 (0.0-0.4) X10*3/uL Baso # (Auto) 0.0 (0.0-0.2) X10*3/uL Abs Immat Gran (auto) 0.04 H (0.00-0.03) X10*3/uL Absolute Neuts (auto) 6.5 (2.0-8.3) x10*3/uL Absolute Nucleated RBC 0.000 (0.0-0.012) X10*3/uL Nucleated RBC % (auto) 0.0 (0.0-0.2) /100WBC ESR 53 H (0-15) MM/HR Sodium 134 L (135-145) mmol/L Potassium 3.9 (3.3-5.1) mmol/L Chloride 96 (96-108) mmol/L Carbon Dioxide 27 (22-29) mmol/L Anion Gap 15 (12-20) BUN 20 H (9-16) mg/dL Creatinine 0.84 (0.5-1.4) mg/dL Estim Creat Clear Calc 99.6 Estimated GFR > 60 Random Glucose 120 H (60-115) mg/dL Uric Acid 8.6 H (3.4-7.0) mg/dL Calcium 10.0 (8.4-10.2) mg/dL Total Bilirubin 1.5 H (0.0-1.0) mg/dL AST 41 H (5-37) U/L ALT 25 (0-40) U/L Alkaline Phosphatase 105 (39-117) U/L C-Reactive Protein 15.47 H (< or = 0.50) mg/dL Total Protein 9.3 H (6.5-8.0) g/dL Albumin 3.4 L (3.5-5.0) g/dL Independent Interpretation I performed an independent interpretation of an: Plain X-Ray Interpretation: My interpretation is in agreement with the radiologist's impression of these imaging studies. L CLINICAL HISTORY: pain, injury 3 view left foot Comparison: None Findings: There is a bone fragment adjacent to the medial malleolus. Remaining bony structures appear intact. No dislocation. Moderate arthritic change of the tibiotalar joint. No significant loss of joint space, osteophytes, or erosions. No ankle effusion. No radiopaque foreign body. IMPRESSION: There is a bone fragment adjacent to the medial malleolus. This is felt to most likely be chronic but an acute fracture is not excluded. This document has been electronically signed by: Syl Ku MD on 08/06/2024 13:12:40 Dictated By: Syl Ku MD Signed By: Electronically signed by Syl Ku MD 08/06/24 1313 CLINICAL HISTORY: pain, injury 2 view left ankle Comparison: CR - XR FOOT LT MIN 3V - 08/06/24 11:32 EDT Findings: There is a 1.3 cm bone fragment adjacent to the medial malleolus. No dislocation. Symmetric ankle mortise. Mild arthritic change. No ankle effusion. No radiopaque foreign body. IMPRESSION: There is a bone fragment adjacent to the medial malleolus. This is most likely chronic but an acute avulsed bone fragment is not excluded. This document has been electronically signed by: Syl Ku MD on 08/06/2024 13:12:57 Dictated By: Syl Ku MD Signed By: Electronically signed by Syl Ku MD 08/06/24 1314 Radiology Impression Discussion of test interpretation with radiology: I have reviewed the radiologist's reading. Independent Historian Clinical information obtained from an independent historian. History obtained from or confirmed by: EMS (EMS provided additional history and confirmed the history provided by the patient.) Prescription Management I considered prescription management with: Pain Medication (patient prescribed pain medication) and Antibiotic (patient prescribed a prophylactic abx) Critical Care Time Critical Care Time Critical Care Time: Yes Total Critical Care Time: 35 Attestation: I spent 35 minutes of Critical Care Time with this patient. This does not include time spent on separately reported billable procedures. Discharge Plan Discharge Clinical Impression: Gout, Ankle pain, Foot pain Patient Disposition: Home, Self-Care Instructions: Low Purine Diet (ED), Gout (ED) Additional Instructions: Your x-rays showed an OLD ankle fracture - that is NOT the cause of your NEW ankle pain. Your examination and labs are consistent with a gout flare. Follow up with your primary care provider and the orthopedic team. Return to the emergency department immediately if your symptoms worsen or if you develop any numbness, tingling, dizziness, shortness of breath, difficulty breathing, chest pain, blurry vision, loss of vision, nausea, vomiting, abdominal pain, fever, chills, back pain, or any other complaints. Please see the information below about our Patient Portal. If you are not yet enrolled in the [facility] Patient Portal, you will receive an enrollment email invitation following your visit to any [facility] setting. You may also self-enroll in the Patient Portal by visiting our website: [email or web address] The following information is required to access the Patient Portal: - Your [facility] Medical Record Number - Your personal home email address (must match what is in your electronic medical record, Registration staff can assist with this) - Name - Date of Capabilities of the Patient Portal: - Message some providers - View upcoming appointments - Access your health summary, medical history, and visit history - View current conditions and allergies - View procedure and lab results - View your medications, including guidelines, side effects, and precautions - Complete pre-appointment questionnaires requested by your provider - Ready summary reports of your office visits and procedures To access the Patient Portal Mobile [employer], follow these directions: - Search [employer] in the [employer] Store or [employer] - Download the [employer] - Search for [facility] - Enter your login/password Prescriptions: New prednisone 20 mg tablet See Rx Instructions .ROUTE .COMPLEX 9 Days Qty: 18 0RF Rx Instructions: 20 mg orally, Take 3 tablets for 3 days THEN; Take 2 tablets for 3 days THEN; Take 1 tablet for 3 days naproxen 500 mg tablet 500 mg PO BID 7 Days Qty: 14 0RF doxycycline hyclate 100 mg tablet 100 mg PO BID 7 Days Qty: 14 0RF Rx Instructions: WHILE ON THIS MEDICINE - AVOID DIRECT SUNLIGHT No Action cyclobenzaprine 10 mg tablet 10 mg PO Q8H Qty: 10 0RF naproxen 500 mg tablet 500 mg PO BID PRN (Reason: pain) Qty: 10 0RF cyclobenzaprine 10 mg tablet 10 mg PO Q8H Qty: 20 0RF ibuprofen 600 mg tablet 600 mg PO Q6H PRN (Reason: Pain, Moderate) Qty: 30 0RF ibuprofen 600 mg tablet 600 mg PO TID PRN (Reason: fever or pain) Qty: 30 0RF cyclobenzaprine 10 mg tablet 10 mg PO TID PRN (Reason: muscle spasm) Qty: 10 0RF Referrals: [facility] Orthopedic Surgeons [Provider Group] (Call to establish and follow up with the orthopedic group. ) [facility] [Primary Care Provider] - Interventions: ED Discharge Assessment Last Done: 08/06/24 14:45 Discharge Date/Time: 08/06/24 14:30 Print Language: Macedonian
[2024-08-06 11:17] VITALS: BP 117/86; PULSE 85; RESP 16; TEMP 36.6; O2SAT 95; BMI 24.5
[2024-08-06 11:49] LABS: MANUAL DIFF FLAG NO
--- OUTSIDE RECORDS SUMMARY | 2024-08-06 11:50 | XMS_ITS | Clinical Summary ---
Author Organization [employer] Address [address] [place] [address] Care Team Providers Care Cant Gang Sawyer Name Role Phone Unavailable Primary Care Provider Unavailabl e Allergies Active Allergy Reactions Criticality Noted Date Comments Acetaminophen 07/29/2023 Codeine 07/29/2023 Penicillins Rash Low 07/29/2023 Medications methadone (Dolophine) 10 MG/ML solution Take 50 mg by mouth in the morning. Active gabapentin (Neurontin) 600 MG tablet Take 1 tablet by mouth every 6 (six) hours during the day. 09/05/19 24 Active clonazePAM (KlonoPIN) 1 MG tabletIndicati ons:Anxiety Take 1 tablet (1 mg) by mouth 2 times daily for 5 days. 10 tablet 07/19/19 25 Active clonazePAM (KlonoPIN) 1 MG tablet Take 2 mg by mouth if needed in the morning and at bedtime. 025 Discontinued(Re order (will not trigger notification to Pharmacy)) Active Problems Problem Noted Date Diagnosed Date Acute pain of right knee 01/13/2023 Assessment & Plan (01/13/2023 2:51 PM EDT): Brusitis? Meniscal pathology? I will order XRAY Ibuprofen 800mg Q 8hrs with full stomach just if needed Elevate knee rest and apply ice Orthopedics referral Opioid dependence, uncomplicated 09/16/2022 Cocaine use 09/16/2022 Depression 09/16/2022 Anxiety 09/16/2022 Assessment & Plan (07/18/2024 9:46 PM EDT): - Cont following with psych team - PDMP reviewed. 5-day bridge rx sent to pharmacy. No refills. History of pelvic fracture 09/16/2022 Encounters Date Type Department Care Team Description 07/20/2024 Telephone [facility] [address] [place] [address] Avril Patel FNP Follow-up 07/18/2024 2:20 PM EDT Office Visit [facility] [address] [place] [address] Avril Patel FNP Localized swelling of right foot (Primary Dx); Anxiety 07/18/2024 Travel 06/02/2024 Population Health Risk Score [facility] () [address] [id number] Provider, Population Health Generic from Last 3 Months Social History Tobacco Use Types Packs/Day Years Used Date Smoking Tobacco: Every Day Cigarettes Last attempted to quit: 2014 Cigars Passive Smoke Exposure: Current Smokeless Tobacco: Never Sex and Gender Information Value Date Recorded Sex Assigned at Male 01/19/2022 10:14 AM EDT Legal Sex Male 10:14 AM EDT Gender Identity Male 01/19/2022 10:14 AM EDT Sexual Orientation Straight 01/19/2022 10 :14 AM EDT Last Filed Vital Signs Vital Sign Reading Time Taken Comments Blood Pressure 154/80 07/18/2024 1:01 PM EDT Pulse 82 07/18/2024 1:01 PM EDT Temperature 36.8 ??C (98.2 ??F) 07/18/2024 1:01 PM ED T Respiratory Rate 18 07/18/2024 1:01 PM EDT Oxygen Saturation 95% 07/18/2024 1:01 PM EDT Inhaled Oxygen Concentration - - Weight 82.1 kg (181 lb) 07/29/2023 10:35 AM EDT Height 175.3 cm (5' 9 ) 07/29/2023 10:35 AM EDT Body Mass Index 26.73 07/29/2023 10:35 AM EDT Plan of Treatment Health Maintenance Due Date Last Done Comments CT Colonography 1964 Colonoscopy 1964 Colorectal Cancer Screening 1964 Depression Screening 1964 FIT DNA/Cologuard 1964 FIT 1964 FOBT 1964 HIV Screening 1964 Lipid Panel 1964 SDOH Screening 1964 Sigmoidoscopy 1964 Alcohol/Substance Use Screening 1976 Hepatitis C Screening 01/11/1982 Pneumococcal Vaccine: 50+ Years (1 of 2 - PCV) 01/11/1983 Dental Oral Exam 08/11/2013 02/10/2013, 04/21/2012 Dental Prophylaxis 09/27/2013 03/29/2013 Zoster Vaccines (1 of 2) 01/11/2014 Dental X-Ray: Full Mouth 04/15/2015 04/14/2012 DTaP/Tdap/Td Vaccines (1 - Tdap) 09/28/2016 09/27/2016, 05/02/2015 Dental X-Ray: Bitewings 05/16/2020 05/15/19 20, 04/14/2012 COVID-19 Vaccine (2 - 2023-2 5 season) 2023 09/12/2020 Influenza Vaccine (#1) 2023 Tobacco Screening 07/28/2024 07/29/2023 RSV Patients and Patients Aged 60 years or older (1 - 1-dose 75+ series) 01/11/2039 HIB Vaccines Aged Out No longer eligi ble based on patient's age to complete this topic HPV Vaccines Aged Out No longer eligi ble based on patient's age to complete this topic Hepatitis A Vaccines Aged Out No long er eligible based on patient's age to complete this topic Hepatitis B Vaccines Aged Out No long er eligible based on patient's age to complete this topic IPV Vaccines Aged Out No longer eligi ble based on patient's age to complete this topic Meningococcal B Vaccine Aged Out No l onger eligible based on patient's age to complete this topic Meningococcal Vaccine Aged Out No shabbir ami eligible based on patient's age to complete this topic RSV under 20 months Aged Out No longe r eligible based on patient's age to complete this topic Rotavirus Vaccines Aged Out No longer eligible based on patient's age to complete this topic Procedures Procedure Name Priority Date/Time Associated Diagnosis Comments BITEWING - SINGLE RADIOGRAPHIC IMAGE Routine 05/15/2019 12:00 AM EST PROPHYLAXIS - ADULT Routine 03/29/2013 1 2:00 AM EST PERIODIC ORAL EVALUATION - ESTABLISHED PATIENT Routine 02/10/2013 12:00 AM EST INTRAORAL - COMPLETE SERIES OF RADIOGRAPHIC IMAGES Routine 04/14/2012 12:00 AM EST from Last 3 Months or Most Recently Relevant to Health Maintenance Insurance [facility] C[facility] MEDICAID STAND ADULT
[2024-08-06] MEDS: Ketorolac Tromethamine 15 MG/ML VIAL IM (11:58)
[2024-08-06 11:59] LABS: Basophils Percent Auto 0.3 % (0-2); Eosinophils Percent Auto 0.4 % (0-4); Hematocrit 51.7 % (42.0-52.0); Hemoglobin 17.3 g/dl (14.0-18.0); Imm Gran Abs Auto 0.04 X10*3/uL (0.00-0.03); Imm Gran Pct Auto 0.4 % (0.0-0.4); Lymphocytes Absolute Auto 2.7 X10*3/uL (1.2-4.9); Mean Corpuscular HGB Conc 33.5 g/dl (31.0-36.0); Mean Corpuscular Hemoglobin 31.2 pg (27.0-33.0); Mean Corpuscular Volume 93.2 fL (80.0-98.0); Mean Platelet Volume 9.3 fL (9.4-12.4); Monocytes Percent Auto 9.8 % (2-11); Neutrophils Absolute Auto 6.5 x10*3/uL (2.0-8.3); Neutrophils Percent Auto 63.1 % (45-73); Platelet Count 203 X10*3/uL (160-400); Red Blood Count 5.55 X10*6/uL (4.60-5.80); Red Cell Distribution Width 13.4 % (11.0-16.0); White Blood Count 10.2 X10*3/uL (4.8-10.8)
[2024-08-06 12:12] LABS: Alanine Aminotransferase 25 U/L (0-40); Albumin Level 3.4 g/dL (3.5-5.0); Alkaline Phosphatase 105 U/L (39-117); Anion Gap 15 (12-20); Aspartate Amino Transferase 41 U/L (5-37); Bilirubin Total 1.5 mg/dL (0.0-1.0); Blood Urea Nitrogen 20 mg/dL (9-16); C Reactive Protein 15.47 mg/dL (< or = 0.50); Carbon Dioxide 27 mmol/L (22-29); Chloride 96 mmol/L (96-108); Creatinine Clr Calc Pharmacy 99.6; Estimated Glomerular Filt Rate > 60; Glucose Random 120 mg/dL (60-115); Potassium 3.9 mmol/L (3.3-5.1); Sodium 134 mmol/L (135-145); Total Protein 9.3 g/dL (6.5-8.0)
[2024-08-06 12:13] LABS: Uric Acid 8.6 mg/dL (3.4-7.0)
[2024-08-06 12:41] LABS: Erythrocyte Sedimentation Rate 53 MM/HR (0-15)
[2024-08-06 14:00] VITALS: BP 107/68; PULSE 66; RESP 16; TEMP 36.7; O2SAT 95
[2024-08-06 14:45] VITALS: BP 107/68; PULSE 66; RESP 16; TEMP 36.7; O2SAT 95
--- NOTE | 2024-08-06 14:45 | PC.NURSE ---
Patient provided w/ sneakers and cane from donations bin. Escorted out to entrance via wheelchair by this RN.
== END 2024-08-06 14:30 | disposition home or self-care (01) ==
PROVIDERS: Physician Assistant Medical; Emergency Provider Emergency Medicine
DX: M10.9 Gout, unspecified (principal); M79.672 Pain in left foot; M25.572 Pain in left ankle and joints of left foot; Z79.899 Other long term (current) drug therapy
CPT/HCPCS: 36415; 73610; 73630; 80053; 84550; 85025; 85652; 86140; 96372; 99284; J1885

== ENCOUNTER → 2024-08-06 11:24 | Outpatient (BNV) | payer MEDICAID, SELFPAY | PROVIDERS: Emergency Provider Emergency Medicine; Visit Provider Radiology Diagnostic Radiology | DX: M25.572 Pain in left ankle and joints of left foot (principal) | CPT/HCPCS: 73610; 73630 ==